=== PATIENT | male | born 1940 | race Caucasian/White ===

== ENCOUNTER 2017-11-21 07:47 | Inpatient (IN) | payer OTHER ==
--- NOTE | 2017-11-21 08:19 | PDOC ---
History of Present Illness - General History Source: Patient Exam Limitations: No Limitations - History of Present Illness Initial Comments: 11/21/17 10:01 The patient is a 77 year old male, with a significant past medical history of Skin CA, Palacios's esophagus, pulmonary fibrosis, spinal stenosis, osteoarthritis, pinched cervical nerve who presents to the emergency department with generalized weakness this morning. 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 Patient is ambulatory by walker at baseline however is unable to walk. Patients last known well was yesterday at approximately 9PM and presents to the ED for further evaluation. Upon evaluation, patient endorses headache, dizziness and double vision. Patient denies chest pain, shortness of breath. Patient denies fever, chills, abdominal pain, nausea, vomit, diarrhea or constipation. Patient denies dysuria, frequency, urgency or hematuria. Patient denies sick contacts or recent travel. Allergies: Oral and IV contrast, shellfish, omeprazole Past surgical history: Cardiac catheterization, R hip replacement. Social history: None PCP: Dr. Pisano <Alicia Mandujano - Last Filed: 11/21/17 10:13> - General History Source: Patient Exam Limitations: No Limitations <Melissa Larsen - Last Filed: 11/21/17 10:18> - General Chief Complaint: Weakness Stated Complaint: WEAKNESS Time Seen by Provider: 11/21/17 08:02 NIH Stroke Scale - Last Known Well Date/Time & Onset Date Last Known Well: 11/20/17 Time Last Known Well: 21:00 - Initial Evaluation Level of consciousness: Alert Ask patient the month and their age: Answers both correctly Ask patient to open & close eyes; make fist and let go: Obeys both correctly Best gaze (horizontal eye movement): Partial gaze palsy Visual field testing: Partial hemianopia Facial paresis (Show teeth/raise eyebrows/close eyes tight): Minor paralysis ( flattened nasolabial fold, asymmetry on smiling) Motor Function: Left Arm: Normal Motor Function: Right Arm: Normal (extends arm 90 (or 45) degrees for 10 seconds without drift Motor Function: Left Leg: No effort against gravity Motor Function: Right Leg: No effort against gravity Limb Ataxia: No ataxia Sensory(Use pinprick test arms,legs,trunk,face/side to side): Normal Best language (Describe picture, name items, read sentences): No Aphasia Dysarthria (read several words): Normal articulation Extinction and Inattention: No abnormality - Total Score NIH Stroke Scale Score: 9 <Melissa Larsen - Last Filed: 11/21/17 10:18> tPA Exclusion checklist 3-4.5h - Time Elapsed Date last known well: 11/20/17 Time last known well: 21:00 Elaspsed time: Day(s) and 13 Hour(s) and 15 Minutes - Thrombolytic Therapy Candidate Is patient eligible for thrombolytic therapy: No - Exclusion Criteria 3-4.5 hr SBP greater than 185 or DBP greater than 110mmHg despite tx: No Recent IC/spinal surgery,head trauma or stroke<3mos.: No Hx IC hemorrhage, IC neoplasm, AV malformation or aneurysm: No Active internal bleeding: No Blding diathesis(low plt ct, inc PTT,INR>1.7 or use of NOAC): No Symptoms suggest subarachnoid hemorrhage: No CT demonstrates multilobar infarct(>1/3 cerebral hemiphere): No Arterial puncture at noncompressible site in previous 7 days: No Blood glucose concentration less than 50mg/dL (2.7mmol/L): No - Relative Exclusion Criteria 3-4.5 hr Life expectancy <1 yr or severe co-morbid illness: No : No Patient/family refused: No Rapid improvement: No Stroke severity too mild: No Recent acute CT (w/in previous 3 months): No Seizure at onset with postictal residual neuro impairments: No Major surgery or serious trauma w/in previous 14 days: No Recent GI or hemorrhage (w/in previous 21 days): No - Add'l Relative Exclusion 3-4.5 hr Age > 80: No Hx of both diabetes AND prior ischemic stroke: No Taking an oral anticoagulant regardless of INR: No NIHSS >25: No - Ineligibility reason(s) Reasons No tPA given: Outside of window - delayed arrival <Melissa Larsen - Last Filed: 11/21/17 10:18> Past History <Alicia Mandujano - Last Filed: 11/21/17 10:13> - Past Medical History Cancer: Yes (SKIN) COPD: No GI Disorders: Yes (BARRETS ESOPHAGUS) Other medical history: PULMONARY FIBROSIS,SPINAL STENOSIS, OSTEOARTHRITIS, PINCHED CERVICAL NERVE - Surgical History Cardiac Surgery: Yes (CATH&STENT) - Suicide/Smoking/Psychosocial Hx Smoking History: Unknown if ever smoked <ChavaMelissa - Last Filed: 11/21/17 10:18> - Past Medical History Allergies/Adverse Reactions: Allergies Allergy/AdvReac Type Severity Reaction Status Date / Time Iodinated Contrast- Oral and Allergy Verified 11/21/17 07:52 IV Dye omeprazole Allergy Verified 11/21/17 07:52 shellfish derived Allergy Verified 11/21/17 07:52 Home Medications: Ambulatory Orders Alprazolam [Xanax] 0.5 mg PO TID 11/21/17 Aspirin [Aspirin EC] 81 mg PO HS 11/21/17 Atorvastatin Ca [Lipitor] 80 mg PO HS 11/21/17 Baclofen 10 mg PO BID 11/21/17 Cholecalciferol (Vitamin D3) [Vitamin D3] 5,000 unit PO DAILY 11/21/17 Esomeprazole Magnesium [Nexium 24Hr] 40 mg PO DAILY PRN 11/21/17 FENTANYL 25mcg PATCH [DURAGESIC 25mcg PATCH -] 75 mcg TD Q72H 11/21/17 Fluticasone Prop 0.05% Nasal [Flonase -] 1 spray NS BID PRN 11/21/17 Furosemide [Lasix -] 20 mg PO DAILY 11/21/17 Gabapentin [Neurontin] 300 mg PO TID 11/21/17 Hypromellose 0.5% Opth Soln [Artificial Tears] 1 drop OU BID PRN 11/21/17 Metoprolol Succinate [Toprol Xl -] 25 mg PO DAILY 11/21/17 Mirtazapine 7.5 mg PO HS 11/21/17 Morphine *Sr* [Ms Contin -] 15 mg PO Q8H PRN 11/21/17 Naproxen [EC-Naprosyn 375 MG] 375 mg PO BID PRN 11/21/17 Sennosides [Senna] 1 tab PO BID 11/21/17 Sodium Chloride [[place] Saline] 1 spr NS BID PRN 11/21/17 Review of Systems - Review of Systems Able to Perform ROS?: Yes Comments:: 11/21/17 10:01 GENERAL/CONSTITUTIONAL: No: fever, chills, weakness, loss of appetite. HEAD, EYES, EARS, NOSE AND THROAT: No: change in vision, ear pain, discharge, sore throat, throat swelling. CARDIOVASCULAR: No: chest pain, lightheadedness, palpitations, syncope RESPIRATORY: No: cough, shortness of breath, wheezing, hemoptysis, stridor. GASTROINTESTINAL: No: nausea, vomiting, abdominal cramping, diarrhea, rectal bleeding, constipation. GENITOURINARY: No: dysuria, hematuria, frequency, urgency, flank pain. MUSCULOSKELETAL: No: back pain, neck pain, joint pain, muscle swelling or pain SKIN: No: lesions, pallor, rash or easy bruising. NEUROLOGIC: +headache, weakness No: vertigo, paresthesias, ENDOCRINE: No: unexplained weight gain or loss HEMATOLOGIC/LYMPHATIC: No: anemia, easy bleeding, swelling nodes <Alicia Mandujano - Last Filed: 11/21/17 10:13> *Physical Exam - Vital Signs Last Vital Signs Temp Pulse Resp BP Pulse Ox 99.1 F 66 20 111/51 96 11/21/17 07:58 11/21/17 07:58 11/21/17 07:58 11/21/17 07:58 11/21/17 08:51 - Physical Exam Comments: 11/21/17 10:01 GENERAL: The patient is in no acute distress. HEAD: Normal with no signs of trauma. EYES: PERRLA, EOMI, sclera anicteric, conjunctiva clear. ENT: Ears normal, nares patent, oropharynx clear without exudates. Moist mucous membranes. NECK: Normal range of motion, supple without lymphadenopathy, JVD, or masses. LUNGS: Breath sounds equal, +Coarse breath sounds. No wheezes, and no crackles. HEART:Regular rate and rhythm, normal S1 and S2. +Systolic murmur along L sternal border. No rub or gallop. ABDOMEN: Soft, nontender, normoactive bowel sounds. No guarding, no rebound. EXTREMITIES: Normal range of motion, no edema. No clubbing or cyanosis. No erythema, or tenderness. NEUROLOGICAL: Cranial nerves II through XII grossly intact. Normal speech. No focal neurological deficits. + Flattened R nasolabial fold, asymmetry on smiling. MUSCULOSKELETAL: Back nontender to palpation, no CVA tenderness SKIN: Warm, Dry, normal turgor, no rashes or lesions noted. <Alicia Mandujano - Last Filed: 11/21/17 10:13> - Vital Signs Last Vital Signs Temp Pulse Resp BP Pulse Ox 99.1 F 66 20 111/51 100 11/21/17 07:58 11/21/17 07:58 11/21/17 07:58 11/21/17 07:58 11/21/17 07:58 <Melissa Larsen - Last Filed: 11/21/17 10:18> ED Treatment Course - LABORATORY CBC & Chemistry Diagram: 11/21/17 08:20 11/21/17 08:20 - ADDITIONAL ORDERS Additional order review: Laboratory Results 11/21/17 11/21/17 08:20 08:20 PT with INR 13.50 H INR 1.19 H Sodium 138 Potassium 4.1 Chloride 94 L Carbon Dioxide 41 H Anion Gap 3 L BUN 9 Creatinine 0.7 Creat Clearance w eGFR > 60 Random Glucose 134 H Calcium 8.4 L Total Bilirubin 0.5 AST 24 ALT 15 Alkaline Phosphatase 100 Creatine Kinase 386 H Creatine Kinase Index 1.4 CK-MB (CK-2) 5.646 H Troponin I < 0.02 Total Protein 6.9 Albumin 3.3 L Triglycerides 55 Cholesterol 110 Total LDL Cholesterol 56 HDL Cholesterol 47 11/21/17 08:20 RBC 4.05 MCV 92.8 MCHC 32.9 RDW 15.3 MPV 8.8 Neutrophils % 82.0 Lymphocytes % 10.4 Monocytes % 7.1 Eosinophils % 0.3 Basophils % 0.2 <Alicia Mandujano - Last Filed: 11/21/17 10:13> - LABORATORY CBC & Chemistry Diagram: 11/21/17 08:20 11/21/17 08:20 - RADIOLOGY Radiology Studies Ordered: Category Date Time Status HEAD CT (STROKE) [CT] Stat CT Scan 11/21/17 08:15 Ordered <Melissa Larsen - Last Filed: 11/21/17 10:18> Medical Decision Making - Medical Decision Making 11/21/17 9:20 AM-- Paged Dr. Marcos regarding patient's case. 9:37 AM-- Page returned and the patients case was discussed. 11/21/17 09:46-- Paged Dr. Vazquez answering service. Awaiting call back. 11/21/17 10:11- Talyor returned the page and the patients case was discussed. <Alicia Mandujano - Last Filed: 11/21/17 10:13> - Medical Decision Making 11/21/17 09:12 Fr. 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 This morning he awoke and reported generalized weakness. He was noted by his colleagues to be unable to bring his coffee mug to his mouth with his right hand. He had to use his left hand to assist the lifting of his coffee mug. Patient states he has a mild headache. Patient states he he notes double vision No trauma. No fevers, chills. No prior episodes like this Examination: Jair is awake and alert, answers questions appropriately. He opens his eyes independently, follows my commands. Patient had difficulty gazing to the right Right nasolabial fold flattening holds both hands up against gravity for 10 seconds Can not hold either leg up against gravity Can not do heel to cannon Pt not aphasic or dysarthric Does have difficulty seeing image when placed in his left visual field Laboratory Tests 11/21/17 11/21/17 11/21/17 08:20 08:20 08:20 WBC 9.6 Hgb 12.4 Hct 37.6 Plt Count 188 Neutrophils % 82.0 PT with INR 13.50 H INR 1.19 H Sodium 138 Potassium 4.1 Chloride 94 L Carbon Dioxide 41 H Anion Gap 3 L BUN 9 Creatinine 0.7 Random Glucose 134 H Creatine Kinase 386 H Troponin I < 0.02 11/21/17 09:19 EKG: SR rate of 68 bpm, axis nml, intervals nml, no st elevations or depressions Case reviewed with Dr marcos 11/21/17 10:[address] Henao Will admit to her service on telemetry Patient had a chest x-ray which is read as questionably positive for pneumonia. It is unclear to me if this is actually a pneumonia or result of patient's primary fibrosis. Will empirically given antibiotics. Will do CT of the patient's chest for further evaluation Clinical impression: weakness, initial presentation <Melissa Larsen - Last Filed: 11/21/17 10:18> *DC/Admit/Observation/Transfer - Attestations Scribe Attestion: 11/21/17 10:01 Documentation prepared by Alicia Mandujano, acting as certified medical technician assistant for Melissa Larsen MD <Alicia Mandujano - Last Filed: 11/21/17 10:13> - Discharge Dispostion Admit: Yes <Melissa Larsen - Last Filed: 11/21/17 10:18> Diagnosis at time of Disposition: Weakness - Discharge Dispostion Condition at time of disposition: Stable - Referrals Referrals: Carlos Eduardo Pisano [Primary Care Provider] - - Patient Instructions - Post Discharge Activity
[2017-11-21 08:36] LABS: BASO % 0.2 % (0-2.0); EOS % 0.3 % (0-4.5); HEMATOCRIT 37.6 % (35.4-49); HEMOGLOBIN 12.4 GM/dL (11.7-16.9); LYMPH % 10.4 % (8-40); MCH 30.5 pg (25.7-33.7); MCHC 32.9 g/dl (32.0-35.9); MEAN CELL VOLUME 92.8 fl (80-96); MEAN PLT VOLUME 8.8 fl (7.5-11.1); MONO % 7.1 % (3.8-10.2); PLATELET COUNT 188 K/MM3 (134-434); RBC 4.05 M/mm3 (4.00-5.60); RDW 15.3 % (11.9-15.9); WHITE BLOOD COUNT 9.6 K/mm3 (4.0-10.0)
[2017-11-21] MEDS: SODIUM CHLORIDE 1,000 ML IV SCH (08:37)
[2017-11-21 08:48] LABS: INR 1.19 (0.82-1.09); PROTHROMBIN TIME (PATIENT) 13.5 SEC (9.98-11.88)
[2017-11-21 09:11] LABS: ALBUMIN 3.3 g/dl (3.4-5.0); ANION GAP 3 (8-16); BLOOD UREA NITROGEN 9 mg/dL (7-18); CALCIUM 8.4 mg/dL (8.5-10.1); CHLORIDE 94 mmol/L (98-107); CHOLESTEROL 110 mg/dL (50-200); CO2 41 mmol/L (21-32); CREATININE 0.7 mg/dL (0.7-1.3); GLUCOSE,RANDOM 134 mg/dL (74-106); POTASSIUM 4.1 mmol/L (3.5-5.1); SGOT/AST 24 U/L (15-37); SGPT/ALT 15 U/L (12-78); SODIUM 138 mmol/L (136-145); TRIGLYCERIDES 55 mg/dL (35-160)
[2017-11-21 09:13] LABS: ALK PHOS 100 U/L (45-117); BILIRUBIN,TOTAL 0.5 mg/dL (0.2-1.0); HDL CHOLESTEROL 47 mg/dL (40-60); LDL CHOLESTEROL (ONLY SJRH) 56 mg/dL (5-100); TOT PROT 6.9 g/dl (6.4-8.2)
[2017-11-21] MEDS ORDERED: morphine CARPU-JECT 4 MG/1 ML DISP.SYRIN IVPUSH ONE (10:03)
[2017-11-21] MEDS ORDERED: MORPHINE SULFATE 10 MG/1 ML *VIAL ONE (10:10)
[2017-11-21] MEDS ORDERED: AZITHROMYCIN IVPB 500 MG in DEXTROSE 5%-WATER - 250 ML IVPB ONE (10:16)
[2017-11-21] MEDS ORDERED: CEFTRIAXONE 1 GM in DEXTROSE 5%-WATER - 50 ML IVPB ONE (10:16)
[2017-11-21] MEDS ORDERED: AZITHROMYCIN IVPB 250 ML IVPB ONE (10:23)
[2017-11-21] MEDS ORDERED: CEFTRIAXONE 1 GM/50 ML BAG ONE (10:23)
--- NOTE | 2017-11-21 10:41 | EKG ---
Test Reason : Blood Pressure : / mmHG Vent. Rate : 068 BPM Atrial Rate : 068 BPM P-R Int : 170 ms QRS Dur : 090 ms QT Int : 406 ms P-R-T Axes : -02 010 013 degrees QTc Int : 431 ms SINUS RHYTHM WITH OCCASIONAL PREMATURE VENTRICULAR COMPLEXES OTHERWISE NORMAL ECG NO PREVIOUS ECGS AVAILABLE Confirmed by SRIDEVI FAIRCHILD, MAGGY ([id number]) on 11/21/2017 10:41:10 AM Referred By: Confirmed By:MAGGY LAUREANO MD
--- NOTE | 2017-11-21 12:32 | PDOC ---
ED Treatment Course - LABORATORY CBC & Chemistry Diagram: 11/23/17 05:05 11/23/17 05:05 - ADDITIONAL ORDERS Additional order review: Laboratory Results 11/21/17 11/21/17 11/21/17 08:20 08:20 08:20 PT with INR 13.50 H INR 1.19 H Sodium 138 Potassium 4.1 Chloride 94 L Carbon Dioxide 41 H Anion Gap 3 L BUN 9 Creatinine 0.7 Creat Clearance w eGFR > 60 Random Glucose 134 H Calcium 8.4 L Total Bilirubin 0.5 AST 24 ALT 15 Alkaline Phosphatase 100 Creatine Kinase 386 H Creatine Kinase Index 1.4 CK-MB (CK-2) 5.646 H Troponin I < 0.02 Total Protein 6.9 Albumin 3.3 L Triglycerides 55 Cholesterol 110 Total LDL Cholesterol 56 HDL Cholesterol 47 Blood Type O POSITIVE Antibody Screen Negative 11/21/17 08:20 RBC 4.05 MCV 92.8 MCHC 32.9 RDW 15.3 MPV 8.8 Neutrophils % 82.0 Lymphocytes % 10.4 Monocytes % 7.1 Eosinophils % 0.3 Basophils % 0.2 - RADIOLOGY Radiology Studies Ordered: Category Date Time Status HEAD CT (STROKE) [CT] Stat CT Scan 11/21/17 08:15 Completed CHEST X-RAY PORTABLE* [RAD] Stat Radiology 11/21/17 08:51 Completed - Medications Given in the ED: ED Medications Discontinued Medications Generic Name Dose Route Start Last Admin Trade Name Freq PRN Reason Stop Dose Admin Azithromycin 500 mg/ Dextrose 250 mls @ 250 mls/hr 11/21/17 10:16 11/21/17 10 :41 IVPB 11/21/17 11:15 250 mls/hr ONCE ONE Administration Ceftriaxone Sodium 1 gm/ 50 mls @ 100 mls/hr 11/21/17 10:16 11/21/17 10:32 Dextrose IVPB 11/21/17 10:45 100 mls/hr ONCE ONE Administration Morphine Sulfate 2 mg 11/21/17 10:03 11/21/17 10:13 Morphine Injection - IVPUSH 11/21/17 10:04 2 mg ONCE ONE Administration Medical Decision Making - Medical Decision Making Case reviewed with Skein Mercerizing Machine Operator re: placing pt on observation Call placed to Dr Vazquez re: placing pt on obs instead of admission Awaiting response *DC/Admit/Observation/Transfer Diagnosis at time of Disposition: Weakness - Discharge Dispostion Condition at time of disposition: Stable - Referrals - Patient Instructions - Post Discharge Activity
[2017-11-21 13:34] VITALS: BMI 35.9
[2017-11-21 15:50] LABS: URINE APPEARANCE CLEAR; URINE BILIRUBIN NEGATIVE (NEGATIVE); URINE BLOOD NEGATIVE (NEGATIVE); URINE COLOR YELLOW; URINE GLUCOSE (UA) NEGATIVE (NEGATIVE); URINE KETONE NEGATIVE (NEGATIVE); URINE LEUK ESTERASE NEGATIVE (NEGATIVE); URINE NITRITE NEGATIVE (NEGATIVE); URINE PROTEIN NEGATIVE (NEGATIVE); URINE UROBILINOGEN NEGATIVE mg/dL (0.2-1.0)
--- NOTE | 2017-11-21 19:14 | HP ---
Admitting History and Physical - Admission History of Present Illness: 11/21/17 10:01 The patient is a 77 year old male, with a significant past medical history of Skin CA, Alonzo's esophagus, pulmonary fibrosis, spinal stenosis, osteoarthritis, pinched cervical nerve who presents to the emergency department with generalized weakness this morning. 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 Patient is ambulatory by walker at baseline however is unable to walk. Patients last known well was yesterday at approximately 9PM and presents to the ED for further evaluation. Upon evaluation, patient endorses headache, dizziness and double vision. Patient denies chest pain, shortness of breath. Patient denies fever, chills, abdominal pain, nausea, vomit, diarrhea or constipation. Patient denies dysuria, frequency, urgency or hematuria. Patient denies sick contacts or recent travel. 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: Peripheral Neuropathy, Parkinson's, TIA Cardiovascular: Yes: HTN Pulmonary: Yes: Pulmonary Fibrosis (had been on Hospice) Gastrointestinal: Yes: Constipation, GERD Psych: Yes: Addictions, Anxiety Musculoskeletal: Yes: Chronic low back pain, Osteoarthritis, Other (spinal and cervical stenosis) Dermatology: Yes: Basal Cell - Past Surgical History Past Surgical History: Yes: Joint Replacement (right hip) - Advance Directives Advance Directives: Yes: Health Care Proxy - Smoking History Smoking history: Unknown if ever smoked - Social History Usual Living Arrangement: Yes: Assisted Living ADL: Support Services History of Recent Travel: No Home Medications - Allergies Allergies/Adverse Reactions: Allergies Allergy/AdvReac Type Severity Reaction Status Date / Time Iodinated Contrast- Oral and Allergy Verified 11/21/17 07:52 IV Dye omeprazole Allergy Verified 11/21/17 07:52 shellfish derived Allergy Verified 11/21/17 07:52 - Home Medications Home Medications: Ambulatory Orders Alprazolam [Xanax] 0.5 mg PO TID 11/21/17 Aspirin [Aspirin EC] 81 mg PO HS 11/21/17 Atorvastatin Ca [Lipitor] 80 mg PO HS 11/21/17 Baclofen 10 mg PO BID 11/21/17 Cholecalciferol (Vitamin D3) [Vitamin D3] 5,000 unit PO DAILY 11/21/17 Esomeprazole Magnesium [Nexium 24Hr] 40 mg PO DAILY PRN 11/21/17 FENTANYL 25mcg PATCH [DURAGESIC 25mcg PATCH -] 75 mcg TD Q72H 11/21/17 Fluticasone Prop 0.05% Nasal [Flonase -] 1 spray NS BID PRN 11/21/17 Furosemide [Lasix -] 20 mg PO DAILY 11/21/17 Gabapentin [Neurontin] 300 mg PO HS 11/21/17 Hypromellose 0.5% Opth Soln [Artificial Tears] 1 drop OU BID PRN 11/21/17 Metoprolol Succinate [Toprol Xl -] 25 mg PO DAILY 11/21/17 Mirtazapine 7.5 mg PO HS 11/21/17 Morphine *Sr* [Ms Contin -] 15 mg PO Q8H PRN 11/21/17 Naproxen [EC-Naprosyn 375 MG] 375 mg PO BID PRN 11/21/17 Sennosides [Senna] 1 tab PO BID 11/21/17 Sodium Chloride [[place] Saline] 1 spr NS BID PRN 11/21/17 Review of Systems - Review of Systems Constitutional: reports: Lethargy, Loss of Appetite, Malaise, Weakness. denies : Chills, Diaphoresis, Fever, Night Sweats Eyes: reports: No Symptoms HENT: reports: No Symptoms Neck: reports: Decreased ROM, Pain on Movement Cardiovascular: reports: Shortness of Breath. denies: Chest Pain, Palpitations Respiratory: reports: Exercise Intolerance, Orthopnea, SOB, SOB on Exertion Gastrointestinal: reports: Constipation, Indigestion. denies: Abdominal Pain, Diarrhea, Dysphagia, Melena, Nausea Genitourinary: reports: No Symptoms Breasts: reports: No Symptoms Reported Musculoskeletal: reports: Back Pain, Decreased ROM, Extremity Pain, Muscle Pain , Muscle Weakness Integumentary: reports: Wound (sacral decubiti) Psychiatric: reports: Anxiety, Depression Physical Examination Vital Signs: Vital Signs Temperature 98.6 F 11/21/17 17:06 Pulse Rate 68 11/21/17 17:06 Respiratory Rate 18 11/21/17 17:06 Blood Pressure 97/60 11/21/17 17:06 O2 Sat by Pulse Oximetry (%) 99 11/21/17 17:06 Constitutional: Yes: Moderate Distress, Obese Eyes: Yes: Conjunctiva Clear, EOM Intact HENT: Yes: Atraumatic, Normocephalic Neck: Yes: Supple, Trachea Midline Cardiovascular: Yes: Pulse Irregular Respiratory: Yes: Diminished, Rhonchi, SOB on Exertion. No: Rales, Stridor, Wheezes Gastrointestinal: Yes: Normal Bowel Sounds, Soft, Abdomen, Obese Renal/: Yes: WNL Breast(s): Yes: WNL Musculoskeletal: Yes: Back Pain, Joint Stiffness, Muscle Pain, Muscle Weakness Edema: Yes Peripheral Pulses WNL: No Neurological: Yes: Alert, Oriented, Numbness, Pre-Existing Deficit, Tremors ( right UE), Unsteady Gait Psychiatric: Yes: Alert, Oriented, Other (depressed) Labs: CBC, BMP 11/21/17 08:20 11/21/17 08:20 Problem List - Problems (1) TIA (transient ischemic attack) Assessment/Plan: acute UE weakness / CT without acute finding Neurology eval May decline MRI in view of clostrophobia will discuss further with Neurology Pt evaluation if back to baseline will arrange for STR @ [facility] Code(s): G45.9 - TRANSIENT CEREBRAL ISCHEMIC ATTACK, UNSPECIFIED (2) Fibrosis, pulmonary, interstitial, diffuse Assessment/Plan: resume medications Pulmonary evaluation Had been on hospice for ILD about 1 yr ago limited activity / tolerance/ Code(s): J84.10 - PULMONARY FIBROSIS, UNSPECIFIED (3) Alonzo esophagus Code(s): K22.70 - ALONZO'S ESOPHAGUS WITHOUT DYSPLASIA (4) Chronic hypoxemic respiratory failure Code(s): J96.11 - CHRONIC RESPIRATORY FAILURE WITH HYPOXIA (5) Pulmonary fibrosis Code(s): J84.10 - PULMONARY FIBROSIS, UNSPECIFIED (6) Weakness Code(s): R53.1 - WEAKNESS
[2017-11-21] MEDS ORDERED: DOCUSATE SODIUM 100 MG CAPSULE (FP) PO PRN (19:51)
--- NOTE | 2017-11-21 21:37 | CONSULT ---
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 He describes a few years of progressive gait dysfunction attributed to cervical and LS spinal stenosis. He has required a walker x 1 year. Also 1 year of right hand tremors. Admitted today after he had trouble feeding himself breakfast, although he notes "this has happened before." He indicates that he need to hold his OJ and coffee with BOTH hands in order to get it to his mouth. CT of head (Reviewed): Shows moderate, diffuse atrophy and microvascular changes. TEDDY: No bruits. Sebborheic skin changes. Cor reg. In NAD. + George NEURO: Sl festinating speech Mild OMS. Ox SJ. November 25, 2017. Difficulty recalling Trump and reversing WORLD. Recalls 2 of 3 @ 3 mins + Glabella, snout, grasps. Masked facies. Gag OK Motor: No drift. Normal strength. ++ Rest tremor R>>L. + Cogwheel rigidity. Decreased KJ's. Absent AJ's. Toes downgoing No FTN Dystaxia Decreased vib in feet. Gait deferred. IMP: Mild B/L cerebral dysfunction (OMS, Chronic features). Parkinsonism, probably Parkinson's Disease. Peripheral neuropathy and/or LS Spinal stenosis. Cannot r/o TIA SUGGEST: Check, B12, TSH, RPR MRI of brain (C-) and MR Angio of brain and Carotids. Start Sinemet 25/100 TID at 7, 12, and 5. Mobilize OOB to chair; D/C George KAREN; and PT for gait with walker. Thank you very much, Matheus Bustillos MD
[2017-11-21] MEDS: FLUTICASONE PROP 0.05% 16 GM NASAL SPRAY NS SCH (21:43)
[2017-11-21] MEDS: ATORVASTATIN CA 80 MG TABLET (FP) PO SCH (21:43)
[2017-11-21] MEDS: GABAPENTIN 300 MG CAPSULE (FP) PO SCH (21:43)
[2017-11-21] MEDS: ALPRAZolam 0.25 MG TABLET PO SCH (21:44)
[2017-11-21] MEDS: MIRTAZAPINE 15 MG TABLET (FP) PO SCH (21:44)
[2017-11-21] MEDS ORDERED: PT OWN MED DRAWER 7, Y5N ONE (21:59)
[2017-11-21] MEDS ORDERED: BACLOFEN 10 MG TABLET (FP) PO SCH (22:00)
[2017-11-22 07:08] LABS: BASO % 0.4 % (0-2.0); EOS % 4.7 % (0-4.5); HEMATOCRIT 34.2 % (35.4-49); HEMOGLOBIN 11.5 GM/dL (11.7-16.9); LYMPH % 23.9 % (8-40); MCH 30.9 pg (25.7-33.7); MCHC 33.6 g/dl (32.0-35.9); MEAN PLT VOLUME 9.2 fl (7.5-11.1); MONO % 9.6 % (3.8-10.2); NEUT % 61.4 % (42.8-82.8); PLATELET COUNT 158 K/MM3 (134-434); RBC 3.71 M/mm3 (4.00-5.60); RDW 15.4 % (11.9-15.9)
[2017-11-22 07:23] LABS: ALBUMIN 2.9 g/dl (3.4-5.0); ANION GAP 3 (8-16); BILIRUBIN,TOTAL 0.5 mg/dL (0.2-1.0); BLOOD UREA NITROGEN 8 mg/dL (7-18); CALCIUM 8.6 mg/dL (8.5-10.1); CHLORIDE 98 mmol/L (98-107); CHOLESTEROL 88 mg/dL (50-200); CO2 40 mmol/L (21-32); CREATININE 0.5 mg/dL (0.7-1.3); GLUCOSE,RANDOM 83 mg/dL (74-106); LDL CHOLESTEROL (ONLY SJRH) 44 mg/dL (5-100); POTASSIUM 3.6 mmol/L (3.5-5.1); SGOT/AST 23 U/L (15-37); SGPT/ALT 17 U/L (12-78); SODIUM 141 mmol/L (136-145); TOT PROT 6.1 g/dl (6.4-8.2); TRIGLYCERIDES 58 mg/dL (35-160)
[2017-11-22 07:29] LABS: ALK PHOS 83 U/L (45-117); HDL CHOLESTEROL 42 mg/dL (40-60)
[2017-11-22] MEDS: PANTOPRAZOLE 40 MG TABLET (FP) PO SCH (10:12)
[2017-11-22] MEDS: ASPIRIN COATED 81 MG TABLET.EC PO SCH (10:12)
[2017-11-22] MEDS: FLUTICASONE PROP 0.05% 16 GM NASAL SPRAY NS SCH ×2 (10:12→22:06)
[2017-11-22] MEDS: metoPROLOL SUCCINATE 25 MG TAB.SR.24H (FP) PO SCH (10:12)
[2017-11-22] MEDS: FUROSEMIDE 20 MG TABLET (FP) PO SCH (10:13)
[2017-11-22] MEDS: ALPRAZolam 0.25 MG TABLET PO SCH ×2 (10:15→22:06)
--- NOTE | 2017-11-22 12:18 | PN ---
Progress Note (short form) - Note Progress Note: PULMONARY CONSULTATION DICTATED 11/22/17 IMP CHRONIC HYPOXEMIC RESPIRATORY FAILURE ADVANCED ILD/PULMONARY FIBROSIS WEAKNESS ? TIA BARRETTS ESOPHAGUS H/O SKIN CA OSTEOARTHRITIS PLAN O2 INHALED BRONCHODILATORS PT DVT PROHYLAXIS NEURO W/U PER NEUROLOGY DR SALAS Problem List - Problems (1) Pulmonary fibrosis Code(s): J84.10 - PULMONARY FIBROSIS, UNSPECIFIED (2) Weakness Code(s): R53.1 - WEAKNESS (3) Chronic hypoxemic respiratory failure Code(s): J96.11 - CHRONIC RESPIRATORY FAILURE WITH HYPOXIA (4) Alonzo esophagus Code(s): K22.70 - ALONZO'S ESOPHAGUS WITHOUT DYSPLASIA
--- NOTE | 2017-11-22 13:15 | CONSULT ---
Admitting History and Physical - Primary Care Physician PCP: Linda Vazquez I - Admission History of Present Illness: Admission note: The patient is a 77 year old male, with a significant past medical history of Skin CA, Palacios's esophagus, pulmonary fibrosis, spinal stenosis, osteoarthritis, pinched cervical nerve who presents to the emergency department with generalized weakness this morning. As per clinical lab clerk, patient had difficulty in raising coffee mug to mouth with R hand and appeared to be leaning to the R side. Patient is ambulatory by walker at baseline however is unable to walk Coughing in ER while drinking but pt and clinical lab clerk reports he was lethargic and "not himself." Neuro imp: Mild B/L cerebral dysfunction (OMS, Chronic features). Parkinsonism, probably Parkinson's Disease. Peripheral neuropathy and/or LS Spinal stenosis. Cannot r/o TIA History Source: Patient, Family Member Limitations to Obtaining History: No Limitations - Advance Directives Advance Directives: Yes: Health Care Proxy - Smoking History Smoking history: Unknown if ever smoked History - Admission Reason For Visit: WEAKNESS - Diagnostics X-ray: Report Reviewed CT Scan: Report Reviewed - General Mental Status: Alert and Oriented, Awake and Alert, Able to Follow Commands Attention: Intact Ability to Follow Directions: Excellent Head/Neck Control: WFL - Hearing Hearing: Normal Speech Evaluation - Communication Primary Language: ARMENIAN Communication: Yes: Within Normal Limits Oral Expression Ability: Yes: No Impairment - Speech Production Able to Make Needs Known: Yes: WNL Intelligibility: Yes: WNL - Speech Characteristics Voice Loudness: Normal Voice Pitch: Yes: Normal Voice Phonatory-based Quality: Yes: Normal Speech Pattern: Normal Speech Clarity: < 100% Nasal Resonance: Normal Articulation: Yes: Precise Rate of Speech: Intact - Language/Auditory Comprehension Follows: Yes: 2 Stage Simple Commands - Language/Verbal Expression Able to Respond to Simple Queries: Yes: WNL Able to Communicate Wants and Needs: Yes: WNL Functional Communication Status: Yes: WNL - Swallow Evaluation/Bedside Assessment Current Nutritional Intake: Regular Oral Secretions: Yes: WFL Dentition: Yes: Adequate Facial Symmetry at Rest: Symmetrical Facial Symmetry on Retraction: Symmetrical Sensation: Normal Against Resistance Opening: Normal Against Resistance Closing: Normal Pucker Lips: Normal Smile: Normal Lingual Movement: Normal, Symmetric Lingual Speed of Movement: Normal Lingual Movement Strgth Against Opposition: Normal Lingual Movement Characteristics: Normal Velopharyngeal Movement: Normal Laryngeal Elevation: WFL Laryngeal Movement: Able to Palpate Rate of Intake: WFL Bolus Size: WFL Labial Seal: WFL Chewing: WFL Oral Prep Time: WFL A-P Transit: WFL Pocketing: None Timing of Swallow: WFL Coughing/Throat Clear: No Change in Voice: No Recommendations - Speech Evaluation, Impression/Plan Impression: Speech,language, swallowing, cognition seem intact. Good historian. - Dysphagia Impressions/Plan Swallowing Skills: WFL *Silent aspiration: cannot be R/O at bedside Recommendations: Modified Barium Swallow (if cough,congestion s/s of dysphagia) - Recommendations Diet Consistency: Regular Medication Administration: Whole with water Liquids: Thin Liquids
--- NOTE | 2017-11-22 13:27 | CONS ---
PULMONARY CONSULTATION DATE OF CONSULTATION: 11/22/2017 REFERRING PHYSICIAN: Linda Vazquez MD HISTORY OF PRESENT ILLNESS: The patient is a 77-year-old white male with past medical history of skin CA, history of Palacios esophagus, history of interstitial lung disease, pulmonary fibrosis diagnosed 1 year ago at [facility]. Apparently, he is on medications which include steroids without any improvement, maintained on home O2. Spinal stenosis, osteoarthritis, cervical pinched nerve, admitted to [facility] with complaint of generalized weakness. According to the patient's livestock caretaker, the patient had difficulty raising his mug to his mouth with his right hand and appeared to be leaning to the right side. He presented to the emergency department with the above. In the ER, he had a CT scan of the head which revealed no evidence of acute process. He was evaluated by Dr. Bustillos who felt that the patient possibly had a TIA, possibly had Parkinson's. He was placed on Sinemet. Patient, as stated before, has been previously seen at [facility] for hospice. He is maintained on O2 and has dyspnea on exertion. He has an occasional cough, but it is nonproductive. Denies any fevers or chills, weight loss, or night sweats. Denies hemoptysis. He has a history of tobacco use, quit many years ago. 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 There is no history of DVT or PE in the past. PAST MEDICAL HISTORY: Again includes a history of skin CA, Palacios esophagus, GERD, history of pulmonary fibrosis, interstitial lung disease on home O2, spinal stenosis, osteoarthritis, cervical pinched nerve, history of a cardiac catheterization as well as a right hip replacement. REVIEW OF SYSTEMS: No orthopnea. Positive dyspnea on exertion. Positive occasional cough. Positive weakness. No chest pain. No palpitations. No abdominal pain. No lower extremity edema. CURRENT MEDICATIONS: Include Neurontin, Remeron, Xanax, Toprol, Colace, Flonase, Sinemet, normal saline, Lipitor, Lasix, Ecotrin, MS Contin, Protonix, and Santyl. PHYSICAL EXAMINATION: General: The patient is a well-developed, well-nourished male, awake, alert, currently in no acute distress. Vital Signs: He is currently afebrile. Blood pressure is 138/70, respiratory rate is 18, O2 saturation is 99% on 2 L. HEENT: Exam is normocephalic, atraumatic. Neck: Supple. Heart: Regular. S1, S2. Chest: Bilateral crackles throughout. Abdomen: Soft. Bowel sounds are positive. Extremities: No cyanosis or edema. LABORATORY DATA: WBC is 8, hemoglobin 11.5, hematocrit 34.2, with a platelet count of 158,000. INR is 1.19. BUN 8, creatinine 0.5. Chest CT: Extensive interstitial changes bilaterally. There is shotty adenopathy and extension traction bronchiectasis, bilateral honeycombing at the bases. IMPRESSION: 1. Advanced interstitial lung disease, pulmonary fibrosis on O2. 2. Rule out transient ischemic attack. 3. Possible Parkinson's. 4. Gastroesophageal reflux disease. 5. Palacios esophagus. PLAN: Continue O2, inhaled bronchodilators, prednisone, neurological workup as per Neurology. PT as tolerated. ESME SALAS M.D. [id number]
[2017-11-22] MEDS: ALBUTEROL SO4 2.5/IPRATROPIUM 0.5 INH SOL 3 ML VIAL.NEB. NEB SCH ×2 (13:45→20:52)
[2017-11-22] MEDS: COLLAGENASE CLOSTRIDIUM HIST. 30 GRAMS TUBE TP SCH ×2 (13:47→22:07)
[2017-11-22] MEDS: SODIUM CHLORIDE 1,000 ML IV SCH (17:40)
[2017-11-22] MEDS ORDERED: PT OWN MED DRAWER 7, Y5N ONE (17:44)
--- NOTE | 2017-11-22 21:50 | PN ---
Progress Note (short form) - Note Progress Note: patient seen and examined sitting in chair O2 in place + dyspneic anxious about MRI speech clear Vital Signs Period Temp Pulse Resp BP Sys/Gipson Pulse Ox Last 24 Hr 97.4 F-98.4 F 57-86 18-20 95-140/43-81 99 neck -jcd heart S1/S2 lungs decreased BS / rhochi diffusely abd obese / nontender ( reports open sore in sacral area / unable to examine at this time) CBC, BMP 11/22/17 06:30 11/22/17 06:30 Microbiology 11/21/17 11:10 Blood - Peripheral Venous Blood Culture - Preliminary NO GROWTH OBTAINED AFTER 24 HOURS, INCUBATION TO CONTINUE FOR 4 DAYS. 11/21/17 10:20 Blood - Peripheral Venous Blood Culture - Preliminary NO GROWTH OBTAINED AFTER 24 HOURS, INCUBATION TO CONTINUE FOR 4 DAYS. Active Medications Albuterol/Ipratropium (Duoneb -) 1 amp NEB RTID [facility] Last Admin: 11/22/17 13:45 Dose: 1 amp Alprazolam (Xanax -) 0.5 mg PO BID [facility] Last Admin: 11/22/17 10:15 Dose: 0.5 mg Aspirin (Ecotrin -) 81 mg PO DAILY [facility] Last Admin: 11/22/17 10:12 Dose: 81 mg Atorvastatin Calcium (Lipitor -) 80 mg PO HS [facility] Last Admin: 11/21/17 21:43 Dose: 80 mg Carbidopa/Levodopa (Sinemet *Cr* 25/100 -) 0.5 combo PO TIDCM [facility] Stop: 11/22/17 23:00 Last Admin: 11/22/17 17:40 Dose: 0.5 combo Carbidopa/Levodopa (Sinemet *Cr* 25/100 -) 1 combo PO TID@0800,1200,1730 [facility] Collagenase (Santyl -) 1 applic TP BID [facility] Last Admin: 11/22/17 13:47 Dose: 1 applic Docusate Sodium (Colace -) 200 mg PO Q12H PRN PRN Reason: CONSTIPATION Last Admin: 11/22/17 10:12 Dose: 200 mg Fluticasone Propionate (Flonase -) 1 spray NS BID [facility] Last Admin: 11/22/17 10:12 Dose: 1 spray Furosemide (Lasix -) 20 mg PO DAILY [facility] Last Admin: 11/22/17 10:13 Dose: 20 mg Gabapentin (Neurontin -) 300 mg PO HS [facility] Last Admin: 11/21/17 21:43 Dose: 300 mg Sodium Chloride (Normal Saline -) 1,000 mls @ 42 mls/hr IV ASDIR [facility] Last Admin: 11/22/17 17:40 Dose: 42 mls/hr Metoprolol Succinate (Toprol Xl -) 25 mg PO DAILY [facility] Last Admin: 11/22/17 10:12 Dose: 25 mg Mirtazapine (Remeron -) 7.5 mg PO HS [facility] Last Admin: 11/21/17 21:44 Dose: 7.5 mg Morphine Sulfate (Ms Contin -) 15 mg PO Q8H PRN PRN Reason: PAIN LEVEL 4 - 6 Pantoprazole Sodium (Protonix -) 40 mg PO DAILY [facility] Last Admin: 11/22/17 10:12 Dose: 40 mg Problem List - Problems (1) TIA (transient ischemic attack) Assessment/Plan: acute UE weakness / CT without acute finding Neurology eval declined MRI will discuss further with Neurology Pt evaluation will arrange for STR @ [facility] Code(s): G45.9 - TRANSIENT CEREBRAL ISCHEMIC ATTACK, UNSPECIFIED (2) Fibrosis, pulmonary, interstitial, diffuse Assessment/Plan: resume medications / nebulizers Pulmonary evaluation appreciated Had been on hospice for ILD about 1 yr ago limited activity / tolerance/ Code(s): J84.10 - PULMONARY FIBROSIS, UNSPECIFIED (3) Palacios esophagus Code(s): K22.70 - PALACIOS'S ESOPHAGUS WITHOUT DYSPLASIA (4) Chronic hypoxemic respiratory failure Code(s): J96.11 - CHRONIC RESPIRATORY FAILURE WITH HYPOXIA (5) Pulmonary fibrosis Code(s): J84.10 - PULMONARY FIBROSIS, UNSPECIFIED (6) Weakness Code(s): R53.1 - WEAKNESS (7) Chronic pain Assessment/Plan: meds resumed adjust as needed Code(s): G89.29 - OTHER CHRONIC PAIN (8) Spinal stenosis of lumbar region with radiculopathy Code(s): M48.061 - SPINAL STENOSIS, LUMBAR REGION WITHOUT NEUROGENIC MARTIN; M54.16 - RADICULOPATHY, LUMBAR REGION (9) Spinal stenosis in cervical region Code(s): M48.02 - SPINAL STENOSIS, CERVICAL REGION (10) GERD (gastroesophageal reflux disease) Code(s): K21.9 - GASTRO-ESOPHAGEAL REFLUX DISEASE WITHOUT ESOPHAGITIS (11) Constipation due to opioid therapy Code(s): K59.03 - DRUG INDUCED CONSTIPATION; T40.2X5A - ADVERSE EFFECT OF OTHER OPIOIDS, INITIAL ENCOUNTER
[2017-11-22] MEDS: GABAPENTIN 300 MG CAPSULE (FP) PO SCH (22:06)
[2017-11-22] MEDS: ATORVASTATIN CA 80 MG TABLET (FP) PO SCH (22:06)
[2017-11-22] MEDS: MIRTAZAPINE 15 MG TABLET (FP) PO SCH (22:06)
[2017-11-23] MEDS ORDERED: CARBIDOPA/LEVODOPA 25/100 TABLET (FP) PO SCH (06:00)
[2017-11-23 07:05] LABS: BASO % 0.4 % (0-2.0); EOS % 3.7 % (0-4.5); HEMATOCRIT 32.8 % (35.4-49); LYMPH % 20.7 % (8-40); MCH 30.7 pg (25.7-33.7); MCHC 33.7 g/dl (32.0-35.9); MEAN CELL VOLUME 91.1 fl (80-96); MEAN PLT VOLUME 9.1 fl (7.5-11.1); MONO % 10.4 % (3.8-10.2); NEUT % 64.8 % (42.8-82.8); PLATELET COUNT 174 K/MM3 (134-434); RDW 14.8 % (11.9-15.9)
[2017-11-23 07:21] LABS: ANION GAP 9 (8-16); BLOOD UREA NITROGEN 6 mg/dL (7-18); CALCIUM 8.7 mg/dL (8.5-10.1); CHLORIDE 97 mmol/L (98-107); CO2 35 mmol/L (21-32); CREATININE 0.6 mg/dL (0.7-1.3); GLUCOSE,RANDOM 92 mg/dL (74-106); MAGNESIUM 2.1 mg/dL (1.8-2.4); POTASSIUM 3.5 mmol/L (3.5-5.1); SODIUM 141 mmol/L (136-145)
[2017-11-23] MEDS: ALBUTEROL SO4 2.5/IPRATROPIUM 0.5 INH SOL 3 ML VIAL.NEB. NEB SCH ×3 (08:17→21:35)
[2017-11-23] MEDS: ASPIRIN COATED 81 MG TABLET.EC PO SCH (10:31)
[2017-11-23] MEDS: ALPRAZolam 0.25 MG TABLET PO SCH ×4 (10:31→21:40)
[2017-11-23] MEDS: PANTOPRAZOLE 40 MG TABLET (FP) PO SCH (10:32)
[2017-11-23] MEDS: FUROSEMIDE 20 MG TABLET (FP) PO SCH (10:32)
[2017-11-23] MEDS: morphine SO4 SUSTAINED ACTING 15 MG TABLET.SA PO PRN ×2 (10:33→22:56)
[2017-11-23] MEDS: SODIUM CHLORIDE 1,000 ML IV SCH (10:33)
[2017-11-23] MEDS: FLUTICASONE PROP 0.05% 16 GM NASAL SPRAY NS SCH ×2 (10:33→21:39)
[2017-11-23] MEDS: COLLAGENASE CLOSTRIDIUM HIST. 30 GRAMS TUBE TP SCH ×2 (10:33→21:39)
[2017-11-23] MEDS: metoPROLOL SUCCINATE 25 MG TAB.SR.24H (FP) PO SCH (10:35)
--- NOTE | 2017-11-23 10:42 | EKG ---
Test Reason : Blood Pressure : / mmHG Vent. Rate : 070 BPM Atrial Rate : 070 BPM P-R Int : 174 ms QRS Dur : 096 ms QT Int : 394 ms P-R-T Axes : 032 010 021 degrees QTc Int : 425 ms SINUS RHYTHM WITH OCCASIONAL PREMATURE VENTRICULAR COMPLEXES AND PREMATURE ATRIAL COMPLEXES NONSPECIFIC ST ABNORMALITY ABNORMAL ECG WHEN COMPARED WITH ECG OF 22-NOV-2017 09:20, PREMATURE VENTRICULAR COMPLEXES ARE NOW PRESENT PREMATURE ATRIAL COMPLEXES ARE NOW PRESENT Confirmed by LONNIE FAIRCHILD, FERNANDO ([id number]) on 11/23/2017 10:42:25 AM Referred By: Cele DERAS Confirmed By:FERNANDO FLEMING MD
--- NOTE | 2017-11-23 11:29 | PN ---
Progress Note (short form) - Note Progress Note: PULMONARY Feels more short of breath today. +nonproductive cough. No fevers or chills. Last Vital Signs Temp Pulse Resp BP Pulse Ox 97.9 F 65 20 140/68 94 L 11/23/17 05:48 11/23/17 05:48 11/23/17 05:48 11/23/17 05:48 11/22/17 21:00 Gen: NAD in chair Heart: RRR Lung: bibasilar rales Abd: soft, nontender Ext: no edema CBC, BMP 11/23/17 05:05 11/23/17 05:05 Active Medications Albuterol/Ipratropium (Duoneb -) 1 amp NEB RTID [facility] Last Admin: 11/23/17 08:17 Dose: 1 amp Alprazolam (Xanax -) 0.5 mg PO BID [facility] Last Admin: 11/23/17 10:31 Dose: 0.5 mg Aspirin (Ecotrin -) 81 mg PO DAILY [facility] Last Admin: 11/23/17 10:31 Dose: 81 mg Atorvastatin Calcium (Lipitor -) 80 mg PO [facility] Last Admin: 11/22/17 22:06 Dose: 80 mg Carbidopa/Levodopa (Sinemet *Cr* 25/100 -) 1 combo PO TID@0800,1200,1730 [facility] Last Admin: 11/23/17 08:32 Dose: 1 combo Collagenase (Santyl -) 1 applic TP BID [facility] Last Admin: 11/23/17 10:33 Dose: 1 applic Docusate Sodium (Colace -) 200 mg PO Q12H PRN PRN Reason: CONSTIPATION Last Admin: 11/22/17 10:12 Dose: 200 mg Fluticasone Propionate (Flonase -) 1 spray NS BID [facility] Last Admin: 11/23/17 10:33 Dose: 1 spray Furosemide (Lasix -) 20 mg PO DAILY [facility] Last Admin: 11/23/17 10:32 Dose: Not Given Gabapentin (Neurontin -) 300 mg PO [facility] Last Admin: 11/22/17 22:06 Dose: 300 mg Sodium Chloride (Normal Saline -) 1,000 mls @ 42 mls/hr IV ASDIR [facility] Last Admin: 11/23/17 10:33 Dose: 42 mls/hr Metoprolol Succinate (Toprol Xl -) 25 mg PO DAILY [facility] Last Admin: 11/23/17 10:35 Dose: 25 mg Mirtazapine (Remeron -) 7.5 mg PO HS [facility] Last Admin: 11/22/17 22:06 Dose: 7.5 mg Morphine Sulfate (Ms Contin -) 15 mg PO Q8H PRN PRN Reason: PAIN LEVEL 4 - 6 Last Admin: 11/23/17 10:33 Dose: 15 mg Pantoprazole Sodium (Protonix -) 40 mg PO DAILY [facility] Last Admin: 11/23/17 10:32 Dose: 40 mg A/P Chronic Hypoxic Respiratory Failure r/o TIA Idiopathic Pulmonary Fibrosis Barretts Esophagus HTN Hypercholesterolemia - will start trial of medrol - inhaled bronchodilators - O2 to keep SpO2 >90% - neuro work up in progress - DVT prophylaxis
[2017-11-23] MEDS ORDERED: FENTANYL PATCH WASTE TD PRN (16:04)
[2017-11-23] MEDS ORDERED: LORazepam 2 MG/ML SDV VIAL ONE (16:05)
[2017-11-23] MEDS ORDERED: fentaNYL 75mcg/hr PATCH.TD72 TD SCH (16:15)
[2017-11-23] MEDS ORDERED: LORazepam 2 MG/ML SDV VIAL IVPUSH ONE (16:15)
--- NOTE | 2017-11-23 20:40 | PN ---
Progress Note (short form) - Note Progress Note: patient seen and examined sitting in chair O2 in place + dyspneic anxious friends at bedside discussed all meds and plan of care / and STR Vital Signs Period Temp Pulse Resp BP Sys/Gipson Pulse Ox Last 24 Hr 97.4 F-98.4 F 57-86 18-20 95-140/43-81 99 neck -jcd heart S1/S2 lungs decreased BS / abd obese / nontender ( reports open sore in sacral area / unable to examine at this time) ext no edema CBC, BMP 11/23/17 05:05 11/23/17 05:05 Microbiology 11/21/17 11:10 Blood - Peripheral Venous Blood Culture - Preliminary NO GROWTH OBTAINED AFTER 48 HOURS, INCUBATION TO CONTINUE FOR 3 DAYS. 11/21/17 10:20 Blood - Peripheral Venous Blood Culture - Preliminary NO GROWTH OBTAINED AFTER 48 HOURS, INCUBATION TO CONTINUE FOR 3 DAYS. Active Medications Albuterol/Ipratropium (Duoneb -) 1 amp NEB RTID [facility] Last Admin: 11/23/17 14:00 Dose: Not Given Alprazolam (Xanax -) 0.5 mg PO QID [facility] Last Admin: 11/23/17 17:23 Dose: 0.5 mg Aspirin (Ecotrin -) 81 mg PO DAILY [facility] Last Admin: 11/23/17 10:31 Dose: 81 mg Atorvastatin Calcium (Lipitor -) 80 mg PO HS [facility] Last Admin: 11/22/17 22:06 Dose: 80 mg Carbidopa/Levodopa (Sinemet *Cr* 25/100 -) 1 combo PO TID@0800,1200,1730 [facility] Last Admin: 11/23/17 17:23 Dose: 1 combo Collagenase (Santyl -) 1 applic TP BID [facility] Last Admin: 11/23/17 10:33 Dose: 1 applic Docusate Sodium (Colace -) 200 mg PO Q12H PRN PRN Reason: CONSTIPATION Last Admin: 11/22/17 10:12 Dose: 200 mg Fentanyl (Duragesic 75mcg Patch -) 1 patch TD Q72H [facility] Last Admin: 11/23/17 16:12 Dose: 1 patch Fluticasone Propionate (Flonase -) 1 spray NS BID [facility] Last Admin: 11/23/17 10:33 Dose: 1 spray Furosemide (Lasix -) 20 mg PO DAILY [facility] Last Admin: 11/23/17 10:32 Dose: Not Given Gabapentin (Neurontin -) 300 mg PO HS [facility] Last Admin: 11/22/17 22:06 Dose: 300 mg Sodium Chloride (Normal Saline -) 1,000 mls @ 42 mls/hr IV ASDIR [facility] Last Admin: 11/23/17 10:33 Dose: 42 mls/hr Metoprolol Succinate (Toprol Xl -) 25 mg PO DAILY [facility] Last Admin: 11/23/17 10:35 Dose: 25 mg Mirtazapine (Remeron -) 7.5 mg PO HS [facility] Last Admin: 11/22/17 22:06 Dose: 7.5 mg Miscellaneous (Duragesic Patch Waste) 1 each TD PRN PRN PRN Reason: PATCH REMOVAL Morphine Sulfate (Ms Contin -) 15 mg PO Q8H PRN PRN Reason: PAIN LEVEL 4 - 6 Last Admin: 11/23/17 10:33 Dose: 15 mg Pantoprazole Sodium (Protonix -) 40 mg PO DAILY [facility] Last Admin: 11/23/17 10:32 Dose: 40 mg Problem List - Problems (1) TIA (transient ischemic attack) Assessment/Plan: acute UE weakness / CT without acute finding Neurology eval declined MRI will discuss further with Neurology Pt evaluation [facility] Code[facility]s): G45.9 - TRANSIENT CEREBRAL ISCHEMIC ATTACK, UNSPECIFIED (2) Fibrosis, pulmonary, interstitial, diffuse Assessment/Plan: resume medications / nebulizers Pulmonary evaluation appreciated Had been on hospice for ILD about 1 yr ago limited activity / tolerance/ Code(s): J84.10 - PULMONARY FIBROSIS, UNSPECIFIED (3) Palacios esophagus Code(s): K22.70 - PALACIOS'S ESOPHAGUS WITHOUT DYSPLASIA (4) Chronic hypoxemic respiratory failure Code(s): J96.11 - CHRONIC RESPIRATORY FAILURE WITH HYPOXIA (5) Pulmonary fibrosis Code(s): J84.10 - PULMONARY FIBROSIS, UNSPECIFIED (6) Weakness Code(s): R53.1 - WEAKNESS (7) Chronic pain Code(s): G89.29 - OTHER CHRONIC PAIN (8) Spinal stenosis of lumbar region with radiculopathy Code(s): M48.061 - SPINAL STENOSIS, LUMBAR REGION WITHOUT NEUROGENIC MARTIN; M54.16 - RADICULOPATHY, LUMBAR REGION (9) Spinal stenosis in cervical region Code(s): M48.02 - SPINAL STENOSIS, CERVICAL REGION (10) GERD (gastroesophageal reflux disease) Code(s): K21.9 - GASTRO-ESOPHAGEAL REFLUX DISEASE WITHOUT ESOPHAGITIS (11) Constipation due to opioid therapy Code(s): K59.03 - DRUG INDUCED CONSTIPATION; T40.2X5A - ADVERSE EFFECT OF OTHER OPIOIDS, INITIAL ENCOUNTER
[2017-11-23] MEDS: GABAPENTIN 300 MG CAPSULE (FP) PO SCH (21:39)
[2017-11-23] MEDS: ATORVASTATIN CA 80 MG TABLET (FP) PO SCH (21:39)
[2017-11-23] MEDS: MIRTAZAPINE 15 MG TABLET (FP) PO SCH (21:40)
[2017-11-24] MEDS: ALBUTEROL SO4 2.5/IPRATROPIUM 0.5 INH SOL 3 ML VIAL.NEB. NEB SCH ×2 (07:27→13:42)
[2017-11-24] MEDS: FUROSEMIDE 20 MG TABLET (FP) PO SCH ×2 (08:52→09:38)
[2017-11-24] MEDS: ASPIRIN COATED 81 MG TABLET.EC PO SCH ×2 (08:52→09:37)
[2017-11-24] MEDS: PANTOPRAZOLE 40 MG TABLET (FP) PO SCH ×2 (08:52→09:38)
[2017-11-24] MEDS: metoPROLOL SUCCINATE 25 MG TAB.SR.24H (FP) PO SCH ×2 (08:52→09:38)
[2017-11-24] MEDS: ALPRAZolam 0.25 MG TABLET PO SCH ×3 (08:52→13:14)
[2017-11-24] MEDS: SODIUM CHLORIDE 1,000 ML IV SCH (09:10)
[2017-11-24] MEDS: FLUTICASONE PROP 0.05% 16 GM NASAL SPRAY NS SCH (09:37)
[2017-11-24] MEDS: COLLAGENASE CLOSTRIDIUM HIST. 30 GRAMS TUBE TP SCH (09:38)
--- NOTE | 2017-11-24 11:23 | DS ---
Physical Examination Vital Signs: Vital Signs Temperature 97.6 F 11/24/17 05:00 Pulse Rate 58 L 11/24/17 05:00 Respiratory Rate 20 11/24/17 05:00 Blood Pressure 120/62 11/24/17 05:00 O2 Sat by Pulse Oximetry (%) 94 L 11/23/17 20:30 Constitutional: Yes: Well Nourished (Pt very anxious about being in hosp. Plan [facility] Anxious Eyes: Yes: WNL, Conjunctiva Clear HENT: Yes: WNL, Normocephalic Neck: Yes: WNL Cardiovascular: Yes: WNL, Regular Rate and Rhythm Respiratory: Yes: WNL, Diminished, On Nasal O2 Gastrointestinal: Yes: WNL Extremities: Yes: WNL Edema: No Peripheral Pulses WNL: Yes Integumentary: Yes: WNL Neurological: Yes: WNL, Alert, Oriented ...Motor Strength: WNL Psychiatric: Yes: WNL, Agitated Labs: CBC, BMP 11/23/17 05:05 11/23/17 05:05 Discharge Summary Reason For Visit: WEAKNESS Current Active Problems Palacios esophagus (Acute) Chronic hypoxemic respiratory failure (Acute) Chronic pain (Acute) Constipation due to opioid therapy (Acute) Fibrosis, pulmonary, interstitial, diffuse (Acute) GERD (gastroesophageal reflux disease) (Acute) Pulmonary fibrosis (Acute) Spinal stenosis in cervical region (Acute) Spinal stenosis of lumbar region with radiculopathy (Acute) TIA (transient ischemic attack) (Acute) Weakness (Acute) Condition: Stable - Instructions Referrals: Carlos Eduardo Pisano [Primary Care Provider] - - Home Medications Comprehensive Discharge Medication List: Ambulatory Orders Alprazolam [Xanax] 0.5 mg PO TID 11/21/17 Aspirin [Aspirin EC] 81 mg PO HS 11/21/17 Atorvastatin Ca [Lipitor] 80 mg PO HS 11/21/17 Baclofen 10 mg PO BID 11/21/17 Cholecalciferol (Vitamin D3) [Vitamin D3] 5,000 unit PO DAILY 11/21/17 Esomeprazole Magnesium [Nexium 24Hr] 40 mg PO DAILY PRN 11/21/17 FENTANYL 25mcg PATCH [DURAGESIC 25mcg PATCH -] 75 mcg TD Q72H 11/21/17 Fluticasone Prop 0.05% Nasal [Flonase -] 1 spray NS BID PRN 11/21/17 Furosemide [Lasix -] 20 mg PO DAILY 11/21/17 Gabapentin [Neurontin] 300 mg PO HS 11/21/17 Hypromellose 0.5% Opth Soln [Artificial Tears] 1 drop OU BID PRN 11/21/17 Metoprolol Succinate [Toprol Xl -] 25 mg PO DAILY 11/21/17 Mirtazapine 7.5 mg PO HS 11/21/17 Morphine *Sr* [Ms Contin -] 15 mg PO Q8H PRN 11/21/17 Naproxen [EC-Naprosyn 375 MG] 375 mg PO BID PRN 11/21/17 Sennosides [Senna] 1 tab PO BID 11/21/17 Sodium Chloride [[place] Saline] 1 spr NS BID PRN 11/21/17
--- NOTE | 2017-11-24 12:01 | PN ---
Progress Note, Physician History of Present Illness: PULMONARY ALERT, COMFORTABLE AT REST ,+ MAY - Current Medication List Current Medications: Active Medications Albuterol/Ipratropium (Duoneb -) 1 amp NEB RTID [facility] Last Admin: 11/24/17 07:27 Dose: 1 amp Alprazolam (Xanax -) 0.5 mg PO QID [facility] Last Admin: 11/24/17 09:38 Dose: Not Given Aspirin (Ecotrin -) 81 mg PO DAILY [facility] Last Admin: 11/24/17 09:37 Dose: Not Given Atorvastatin Calcium (Lipitor -) 80 mg PO [facility] Last Admin: 11/23/17 21:39 Dose: 80 mg Carbidopa/Levodopa (Sinemet *Cr* 25/100 -) 1 combo PO TID@0800,1200,1730 [facility] Last Admin: 11/24/17 11:17 Dose: 1 combo Collagenase (Santyl -) 1 applic TP BID [facility] Last Admin: 11/24/17 09:38 Dose: 1 applic Docusate Sodium (Colace -) 200 mg PO Q12H PRN PRN Reason: CONSTIPATION Last Admin: 11/22/17 10:12 Dose: 200 mg Fentanyl (Duragesic 75mcg Patch -) 1 patch TD Q72H [facility] Last Admin: 11/23/17 16:12 Dose: 1 patch Fluticasone Propionate (Flonase -) 1 spray NS BID [facility] Last Admin: 11/24/17 09:37 Dose: 1 spray Furosemide (Lasix -) 20 mg PO DAILY [facility] Last Admin: 11/24/17 09:38 Dose: Not Given Gabapentin (Neurontin -) 300 mg PO [facility] Last Admin: 11/23/17 21:39 Dose: 300 mg Sodium Chloride (Normal Saline -) 1,000 mls @ 42 mls/hr IV ASDIR [facility] Last Admin: 11/24/17 09:10 Dose: Not Given Metoprolol Succinate (Toprol Xl -) 25 mg PO DAILY [facility] Last Admin: 11/24/17 09:38 Dose: Not Given Mirtazapine (Remeron -) 7.5 mg PO [facility] Last Admin: 11/23/17 21:40 Dose: 7.5 mg Miscellaneous (Duragesic Patch Waste) 1 each TD PRN PRN PRN Reason: PATCH REMOVAL Morphine Sulfate (Ms Contin -) 15 mg PO Q8H PRN PRN Reason: PAIN LEVEL 4 - 6 Last Admin: 11/23/17 22:56 Dose: 15 mg Pantoprazole Sodium (Protonix -) 40 mg PO DAILY [facility] Last Admin: 11/24/17 09:38 Dose: Not Given - Objective Vital Signs: Vital Signs Temperature 97.6 F 11/24/17 05:00 Pulse Rate 58 L 11/24/17 05:00 Respiratory Rate 20 11/24/17 05:00 Blood Pressure 120/62 11/24/17 05:00 O2 Sat by Pulse Oximetry (%) 94 L 11/23/17 20:30 Constitutional: Yes: Well Nourished, Calm Eyes: Yes: WNL HENT: Yes: WNL Neck: Yes: WNL Cardiovascular: Yes: Regular Rate and Rhythm, S1, S2 Respiratory: Yes: Rales (BILATERAL CRACKLES) Gastrointestinal: Yes: Normal Bowel Sounds, Soft Extremities: Yes: WNL Edema: Yes Labs: CBC, BMP 11/23/17 05:05 11/23/17 05:05 INR, PTT INR 1.19 (0.82-1.09) H 11/21/17 08:20 Problem List - Problems (1) Pulmonary fibrosis Code(s): J84.10 - PULMONARY FIBROSIS, UNSPECIFIED (2) Weakness Code(s): R53.1 - WEAKNESS (3) Chronic hypoxemic respiratory failure Code(s): J96.11 - CHRONIC RESPIRATORY FAILURE WITH HYPOXIA (4) Alonzo esophagus Code(s): K22.70 - ALONZO'S ESOPHAGUS WITHOUT DYSPLASIA Assessment/Plan IMP CHRONIC HYPOXEMIC RESPIRATORY FAILURE ADVANCED ILD/PULMONARY FIBROSIS WEAKNESS ? TIA BARRETTS ESOPHAGUS H/O SKIN CA OSTEOARTHRITIS PLAN O2 INHALED BRONCHODILATORS PT DR SALAS Problem List - Problems (1) Pulmonary fibrosis Code(s): J84.10 - PULMONARY FIBROSIS, UNSPECIFIED (2) Weakness Code(s): R53.1 - WEAKNESS (3) Chronic hypoxemic respiratory failure Code(s): J96.11 - CHRONIC RESPIRATORY FAILURE WITH HYPOXIA (4) Alonzo esophagus Code(s): K22.70 - ALONZO'S ESOPHAGUS WITHOUT DYSPLASIA
[2017-11-24 13:42] VITALS: BP 143/77; PULSE 79; TEMP 98
--- NOTE | 2017-11-24 15:08 | EKG ---
Test Reason : Blood Pressure : / mmHG Vent. Rate : 065 BPM Atrial Rate : 065 BPM P-R Int : 176 ms QRS Dur : 092 ms QT Int : 402 ms P-R-T Axes : 000 001 002 degrees QTc Int : 418 ms SINUS RHYTHM WITH OCCASIONAL PREMATURE VENTRICULAR COMPLEXES AND PREMATURE ATRIAL COMPLEXES OTHERWISE NORMAL ECG WHEN COMPARED WITH ECG OF 23-NOV-2017 09:02, NO SIGNIFICANT CHANGE WAS FOUND Confirmed by NALLELY PAGAN MD ([id number]) on 11/24/2017 3:07:37 PM Referred By: ANH Confirmed By:NALLELY PAGAN MD
== END 2017-11-24 14:52 | DRG 57 ==
LOC: JER 07:47 → JERBED 10:18 → J4W 16:19
PROVIDERS: ADMIT Family Medicine; ATTEND Family Medicine
DX: G20 Parkinson's disease (principal); G45.8 Other transient cerebral ischemic attacks and related syndromes; J96.11 Chronic respiratory failure with hypoxia; K22.70 Barrett's esophagus without dysplasia; J84.112 Idiopathic pulmonary fibrosis; M19.90 Unspecified osteoarthritis, unspecified site; G62.89 Other specified polyneuropathies; K21.9 Gastro-esophageal reflux disease without esophagitis; I10 Essential (primary) hypertension; F41.9 Anxiety disorder, unspecified; M54.5 Low back pain; M48.02 Spinal stenosis, cervical region; R29.709 NIHSS score 9; R53.1 Weakness; G89.29 Other chronic pain; M48.061 Spinal stenosis, lumbar region without neurogenic claudication; M54.16 Radiculopathy, lumbar region; K59.03 Drug induced constipation; T40.2X5A Adverse effect of other opioids, initial encounter; Z85.828 Personal history of other malignant neoplasm of skin; Z96.641 Presence of right artificial hip joint
CPT/HCPCS: 36415; 70450-TC; 71045-TC-FY; 71250-TC; 80048; 80053; 80061; 81003; 82465; 82550; 82553; 82607; 83036; 83718; 83721; 83735; 84443; 84478; 84484; 85025; 85610; 86850; 86900; 86901; 87040; 93005; 93010; 94640; 97116-GP; 97161-GP; 99285-25

== ENCOUNTER 2018-08-23 09:58 | Inpatient (IN) | payer OTHER ==
--- NOTE | 2018-08-23 10:45 | PDOC ---
History of Present Illness - General History Source: Patient Exam Limitations: No Limitations - History of Present Illness Initial Comments: 08/23/18 12:25 Mr. Diaz is a 77 year old male with past medical history significant for Squamous cell CA, R. hip replacement with arthritis, cataracts, PCI (2012), HTN , HLD, Palacios esophagus, Chronic hypoxemic respiratory failure, GERD, Pulmonary fibrosis (continuous O2 3-4L), Cervical spinal stenosis, Lumbar spinal stenosis w/ radiculopathy, hx of TIA, constipation secondary to opioid therapy presents to the emergency department from [facility] via EMS with AMS and increased weakness. Per aide, who is at the bedside, for the past 4 days, the patients been having increased confusion with difficulty recalling place and name, and trouble with ambulation. The aide reports the patients mental status did improve today, and he was able to recall his name and place. Per aide, the patients been constipated for the past 4 days, with a small bowel movement earlier today. The patient reports his last enema was on Tuesday. The patient was started on Albuterol (inhaler), Z-pack and prednisone 2 days ago. The aide states since last week the patients been having SOB, with increased O2 titration. Denies taking his morning medication: Fentanyl 50 mg, Tylenol, Gabapentin, and Morphine 15 mg PRN. Denies changes in appetite, fever, chills, chest pain. Per Father Dm, prior to the episodes of confusions yesterday, the father found an empty bottle of cough medication that in the patients room. Father Dm reports since the hospice care the patients been known to abuse Xanax or request Marijuana from his healthcare providers. Allergies: Contrast,, omeprazole, shellfish derived. Social history: Former smoker PCP: Dr. Pisano. Engineering Professor: Dr. Salmon. Father Dm: [phone] Code status: DNI/DNR <aMrta Guardado - Last Filed: 08/23/18 12:27> - General History Source: Patient Exam Limitations: No Limitations <Mone Guallpa - Last Filed: 08/23/18 12:45> - General Chief Complaint: Respiratory Stated Complaint: AMS Time Seen by Provider: 08/23/18 10:24 Past History <Marta Guardado - Last Filed: 08/23/18 12:27> - Past Medical History Cancer: Yes (SKIN, SQUAMOUS CELL FOREHEAD/LEG) Cardiac Disorders: Yes (STENT) COPD: No GI Disorders: Yes (BARRETS ESOPHAGUS) Other medical history: PULMONARY FIBROSIS, OX DEP, - Surgical History Cardiac Surgery: Yes (CATH&STENT) - Suicide/Smoking/Psychosocial Hx Smoking History: Never smoked <Mone Guallpa - Last Filed: 08/23/18 12:45> - Past Medical History Allergies/Adverse Reactions: Allergies Allergy/AdvReac Type Severity Reaction Status Date / Time Iodinated Contrast- Oral and Allergy Verified 08/23/18 10:22 IV Dye omeprazole Allergy Verified 08/23/18 10:22 shellfish derived Allergy Verified 08/23/18 10:22 Home Medications: Ambulatory Orders Alprazolam [Xanax] 1 mg PO TID 11/21/17 Aspirin [Aspirin EC] 81 mg PO HS 11/21/17 Atorvastatin Ca [Lipitor] 80 mg PO HS 11/21/17 Baclofen 10 mg PO BID 11/21/17 Cholecalciferol (Vitamin D3) [Vitamin D3] 5,000 unit PO DAILY 11/21/17 Esomeprazole Magnesium [Nexium 24Hr] 40 mg PO DAILY PRN 11/21/17 FENTANYL 25mcg PATCH [DURAGESIC 25mcg PATCH -] 50 mcg TD Q72H 11/21/17 Fluticasone Prop 0.05% Nasal [Flonase -] 1 spray NS BID PRN 11/21/17 Furosemide [Lasix -] 20 mg PO DAILY 11/21/17 Gabapentin [Neurontin] 300 mg PO HS 11/21/17 Hypromellose 0.5% Opth Soln [Artificial Tears] 1 drop OU BID PRN 11/21/17 Metoprolol Succinate [Toprol Xl -] 25 mg PO DAILY 11/21/17 Mirtazapine 7.5 mg PO HS 11/21/17 Morphine *Sr* [Ms Contin -] 15 mg PO Q6H PRN 11/21/17 Naproxen [EC-Naprosyn 375 MG] 375 mg PO BID PRN 11/21/17 Sennosides [Senna] 1 tab PO BID 11/21/17 Sodium Chloride [[place] Saline] 1 spr NS BID PRN 11/21/17 Albuterol 0.083% Nebulizer Chanell [Ventolin 0.083%] 1 neb NEB QID 08/23/18 Azithromycin 250 mg PO DAILY 08/23/18 Docusate Sodium [Colace] 100 mg PO BID 08/23/18 Pantoprazole Sodium [Protonix] 40 mg PO DAILY 08/23/18 Prednisone [Deltasone] 20 mg PO DAILY 08/23/18 Review of Systems - Review of Systems Able to Perform ROS?: Yes Comments:: 08/23/18 12:26 Constitutional: no fevers or chills. HEENT: no headache or dizziness. +Runny nose. No congestion. No visual/hearing disturbances. CVS: no cp or syncope. Resp: +Increased sob, cough with yellow production. Abdomen: no abdominal pain, nausea or vomiting. Genitourinary: no urinary sx, hematuria. MUSCULOSKELETAL: +L. Hip pain, chronic in nature. No other joint pain and swelling. No neck or back pain. SKIN: no redness or skin changes, no discharge, no rash. No wounds. Hematologic: no easy bruising/bleeding. NEUROLOGIC: +AMS, Increased confusion with difficulty ambulation, weakness. No headache, dizziness, LOC. No numbness or tingling. All other systems reviewed and negative, or as documented in HPI. <Marta Guardado - Last Filed: 08/23/18 12:27> *Physical Exam - Vital Signs Last Vital Signs Temp Pulse Resp BP Pulse Ox 97.5 F L 89 25 H 136/69 95 08/23/18 10:22 08/23/18 12:02 08/23/18 12:02 08/23/18 12:02 08/23/18 12:02 - Physical Exam Comments: 08/23/18 12:27 General: Well appearing, awake and alert, NAD. HEENT: NCAT, PERRL, EOMI, clear conjunctiva, anicteric, moist mucus membranes, clear oropharynx, no oral lesions.. Neck: neck supple, FROM Resp: +Bilateral crackles, no wheezing. Mild tachypnea CVS: +Holosystolic murmur. RRR, 2+ peripheral pulses throughout, no peripheral edema Abdomen: soft, NTND, no peritoneal signs. Back: nontender, normal inspection and ROM MSK: no edema, TRENT x4, ROM intact. No clubbing or cyanosis. normal bulk and tone. +left hip TTP Extremities: no calf tenderness Neuro: alert, oriented appropriately; no focal neurologic deficits Skin: warm and well perfused, cap refill <2 sec, normal color <Marta Guardado - Last Filed: 08/23/18 12:27> - Vital Signs Last Vital Signs Temp Pulse Resp BP Pulse Ox 97.5 F L 87 24 H 123/71 94 L 08/23/18 10:22 08/23/18 10:22 08/23/18 10:22 08/23/18 10:22 08/23/18 10:30 <Mone Guallpa - Last Filed: 08/23/18 12:45> Moderate Sedation - Procedure Monitoring Vital Signs: Procedure Monitoring Vital Signs Temperature 97.5 F L 08/23/18 10:22 Pulse Rate 89 08/23/18 12:02 Respiratory Rate 25 H 08/23/18 12:02 Blood Pressure 136/69 08/23/18 12:02 O2 Sat by Pulse Oximetry (%) 95 08/23/18 12:02 <Marta Guardado - Last Filed: 08/23/18 12:27> - Procedure Monitoring Vital Signs: Procedure Monitoring Vital Signs Temperature 97.5 F L 08/23/18 10:22 Pulse Rate 87 08/23/18 10:22 Respiratory Rate 24 H 08/23/18 10:22 Blood Pressure 123/71 08/23/18 10:22 O2 Sat by Pulse Oximetry (%) 94 L 08/23/18 10:30 <Mone Guallpa - Last Filed: 08/23/18 12:45> Heart Score/ECG Review - ECG Impressions Normal ECG: No Comment:: 08/23/18 12:19 EKG normal sinus rhythm, no interval abnormalities, narrow QRS, ST and T wave segments and morphology normal. Nonspecific T wave abnormalities <Mone Guallpa - Last Filed: 08/23/18 12:45> ED Treatment Course - LABORATORY CBC & Chemistry Diagram: 08/23/18 11:00 08/23/18 11:00 - ADDITIONAL ORDERS Additional order review: Laboratory Results 08/23/18 08/23/18 08/23/18 11:25 11:18 11:00 PT with INR INR VBG pH 7.41 POC VBG pCO2 64.5 H* POC VBG pO2 38.3 Mixed VBG HCO3 40.3 H* Sodium Potassium Chloride Carbon Dioxide Anion Gap BUN Creatinine Creat Clearance w eGFR Random Glucose Lactic Acid 1.7 Calcium Total Bilirubin AST ALT Alkaline Phosphatase Troponin I Total Protein Albumin Opiates Screen Negative Methadone Screen Negative Barbiturate Screen Negative Phencyclidine Screen Negative Ur Amphetamines Screen Negative MDMA (Ecstasy) Screen Negative Benzodiazepines Screen Positive A* Cocaine Screen Negative U Marijuana (THC) Screen Negative 08/23/18 08/23/18 11:00 11:00 PT with INR 14.10 H INR 1.19 H VBG pH POC VBG pCO2 POC VBG pO2 Mixed VBG HCO3 Sodium 139 Potassium 3.8 Chloride 92 L Carbon Dioxide 40 H Anion Gap 6 L BUN 9 Creatinine 0.8 Creat Clearance w eGFR > 60 Random Glucose 125 H Lactic Acid Calcium 8.9 Total Bilirubin 0.4 AST 17 ALT 21 Alkaline Phosphatase 91 Troponin I < 0.02 Total Protein 7.3 Albumin 3.2 L Opiates Screen Methadone Screen Barbiturate Screen Phencyclidine Screen Ur Amphetamines Screen MDMA (Ecstasy) Screen Benzodiazepines Screen Cocaine Screen U Marijuana (THC) Screen 08/23/18 11:00 RBC 4.03 MCV 97.9 H MCHC 32.5 RDW 13.7 MPV 8.0 D Neutrophils % 74.7 Lymphocytes % 14.7 D Monocytes % 9.1 Eosinophils % 1.2 Basophils % 0.3 - Medications Given in the ED: ED Medications Discontinued Medications Generic Name Dose Route Start Last Admin Trade Name Severoq PRN Reason Stop Dose Admin Acetaminophen 1,000 mg 08/23/18 11:33 08/23/18 11:45 Ofirmev Injection - IVPB 08/23/18 11:34 1,000 mg ONCE ONE Administration Lidocaine 1 patch 08/23/18 11:33 08/23/18 11:50 Lidoderm Patch - TP 08/23/18 11:34 1 patch ONCE ONE Administration <Marta Guardado - Last Filed: 08/23/18 12:27> - LABORATORY CBC & Chemistry Diagram: 08/23/18 11:00 08/23/18 11:00 <Mone Guallpa - Last Filed: 08/23/18 12:45> Medical Decision Making - Medical Decision Making 08/23/18 11:22 HPI as documented. DNR/DNI. DDx SOB: ACS, PE, CHF, pulmonary edema, pleurisy, pneumonia, viral syndrome. effusion. anemia, electrolyte/metabolic derangements. influenza, ILD flare. vitals reviewed, mildly tachypneic and borderline sats ~92% on 3LO2, uptitrated to 5L O2 for hypoxia no fever here Prior notes reviewed, including admissions, discharges and consultations. laboratory results and imaging reviewed, basic labs and lytes wnl, Utox pending. neg flu testing. VBG with normal pH, so doubt derangement CXR_with ILD findings, chronic bronchiectasis, no acute changes, no focal infiltrate. Cardiac panel_neg trop EKG normal sinus rhythm, no interval abnormalities, narrow QRS, ST and T wave segments and morphology normal. Nonspecific T wave abnormalities ED course: analgesia with topical lidoderm patch and tylenol. hold off on further opioids as he has been experiencing side effects/sedation/AMS with benzo /opioid abuse. sputum cx sent; remainder of infectious workup pending no fever or systemic findings, defer abx treating for now. currently on z rajeev, albuterol PRN and prednisone, which can help with his ILD flare. benzo positive on Utox. Dispo: admit to Dr. Marcelo, agree with pain Admit for SOB/hypoxia, increased O2 need, ILD flare. Discussed results and management plan with pt and family member/RN at bedside, agree with impression and plan 08/23/18 12:43 <Mone Guallpa - Last Filed: 08/23/18 12:45> *DC/Admit/Observation/Transfer - Attestations Scribe Attestion: 08/23/18 12:27 Documentation prepared by Marta Guardado, acting as medical office administrator for Mone Guallpa MD. <Marta Guardado - Last Filed: 08/23/18 12:27> - Discharge Dispostion Decision to Admit order: Yes Decision to Admit order Date/Time: 08/23/18 12:43 Decision to Admit Order Category Date Time Status Decision to Admit to Hospital Routine Admission 08/23/18 12:24 Active - Attestations Physician Attestion: 08/23/18 10:45 I, Mone Guallpa MD, attest that this document has been prepared under my direction and personally reviewed by me in its entirety. I further attest, that it accurately reflects all work, treatment, procedures and medical decision -making performed by me. <Mone Guallpa - Last Filed: 08/23/18 12:45> Diagnosis at time of Disposition: Shortness of breath, Pulmonary fibrosis - Discharge Dispostion Condition at time of disposition: Guarded
[2018-08-23 11:25] LABS: BASO % 0.3 % (0-2.0); EOS % 1.2 % (0-4.5); HEMATOCRIT 39.5 % (35.4-49); HEMOGLOBIN 12.8 GM/dL (11.7-16.9); LYMPH % 14.7 % (8-40); MCH 31.8 pg (25.7-33.7); MCHC 32.5 g/dl (32.0-35.9); MEAN CELL VOLUME 97.9 fl (80-96); MONO % 9.1 % (3.8-10.2); NEUT % 74.7 % (42.8-82.8); PLATELET COUNT 221 K/MM3 (134-434); RBC 4.03 M/mm3 (4.00-5.60); RDW 13.7 % (11.9-15.9); WHITE BLOOD COUNT 9.6 K/mm3 (4.0-10.0)
[2018-08-23 11:30] LABS: VENOUS PC02 64.5 mmHg (38-52); VENOUS PH 7.41 (7.32-7.42); VENOUS PO2 38.3 mmHg (28-48)
[2018-08-23] MEDS ORDERED: LIDOCAINE 5% TOPICAL PATCH TP ONE (11:33)
[2018-08-23] MEDS ORDERED: ACETAMINOPHEN 1000 MG/100 ML VIAL (NON FORMULARY) IVPB ONE (11:33)
[2018-08-23] MEDS ORDERED: ACETAMINOPHEN INJECTION 100 ML IVPB ONE (11:36)
[2018-08-23] MEDS ORDERED: LIDOCAINE 5% TOPICAL PATCH ONE ×2 (11:36→11:37)
[2018-08-23 11:37] LABS: INR 1.19 (0.83-1.09); PROTHROMBIN TIME (PATIENT) 14.1 SEC (9.7-13.0)
[2018-08-23 11:55] LABS: ALBUMIN 3.2 g/dl (3.4-5.0); ALK PHOS 91 U/L (45-117); ANION GAP 6 MMOL/L (8-16); BILIRUBIN,TOTAL 0.4 mg/dL (0.2-1); BLOOD UREA NITROGEN 9 mg/dL (7-18); CALCIUM 8.9 mg/dL (8.5-10.1); CHLORIDE 92 mmol/L (98-107); CO2 40 mmol/L (21-32); CREATININE 0.8 mg/dL (0.55-1.3); GLUCOSE,RANDOM 125 mg/dL (74-106); POTASSIUM 3.8 mmol/L (3.5-5.1); SGOT/AST 17 U/L (15-37); SGPT/ALT 21 U/L (13-61); SODIUM 139 mmol/L (136-145); TOT PROT 7.3 g/dl (6.4-8.2)
[2018-08-23 12:10] LABS: COCAINE, UR NEGATIVE ng/ml (CUTOFF=300); METHADONE, UR NEGATIVE ng/ml (CUTOFF=300); OPIATES, URI NEGATIVE ng/ml (CUTOFF=300); PHENCYCLIDINE,URINE NEGATIVE ng/ml (CUTOFF=25); URINE AMPHETAMINES NEGATIVE ng/ml (CUTOFF=500); URINE BARBITURATES NEGATIVE ng/ml (CUTOFF=200)
[2018-08-23 12:23] LABS: URINE BENZODIAZEPINES POSITIVE ng/ml (CUTOFF=200)
[2018-08-23] MEDS ORDERED: SODIUM CHLORIDE NASAL SPRAY 44 ML BOTTLE NS PRN (13:15)
[2018-08-23] MEDS ORDERED: fentaNYL 25mcg/hr PATCH.TD72 TD SCH (13:15)
[2018-08-23] MEDS ORDERED: ARTIFICIAL TEARS (POLYVINYL ALCOHOL) OPTH DROPS OU PRN (13:15)
[2018-08-23] MEDS ORDERED: FLUTICASONE PROP 0.05% 16 GM NASAL SPRAY NS PRN (13:15)
[2018-08-23 14:43] VITALS: BMI 39.4
[2018-08-23] MEDS ORDERED: FENTANYL PATCH WASTE TD PRN (14:44)
[2018-08-23] MEDS: AZITHROMYCIN IVPB 500 MG/250 ML BAG IVPB SCH (15:05)
[2018-08-23] MEDS: ALPRAZolam 2 MG TABLET PO SCH ×2 (15:05→21:47)
[2018-08-23] MEDS ORDERED: fentaNYL 50mcg/hr PATCH.TD72 TD SCH (15:19)
--- NOTE | 2018-08-23 15:24 | PN ---
Progress Note (short form) - Note Progress Note: PULMONARY CONSULTATION DICTATED 08/23/18 IMP ACUTE ON CHRONIC HYPOXEMIC RESPIRATORY FAILURE CHRONIC HYPERCAPNEIC RESPIRATORY FAILURE END STAGE ILD/PULMONARY FIBROSIS ? PNEUMONIA ASHD S/P STENT HTN HLD BARRETTS ESOPHAGUS PLAN IV STEROIDS INHALED BRONCHODILATORS O2 ABX F/U CHEST X-RAY SPUTUM C+S DR SALAS Problem List - Problems (1) Acute on chronic respiratory failure with hypoxemia Code(s): J96.21 - ACUTE AND CHRONIC RESPIRATORY FAILURE WITH HYPOXIA (2) Pulmonary fibrosis Code(s): J84.10 - PULMONARY FIBROSIS, UNSPECIFIED (3) Shortness of breath Code(s): R06.02 - SHORTNESS OF BREATH (4) Chronic pain Code(s): G89.29 - OTHER CHRONIC PAIN (5) Fibrosis, pulmonary, interstitial, diffuse Code(s): J84.10 - PULMONARY FIBROSIS, UNSPECIFIED (6) Constipation due to opioid therapy Code(s): K59.03 - DRUG INDUCED CONSTIPATION; T40.2X5A - ADVERSE EFFECT OF OTHER OPIOIDS, INITIAL ENCOUNTER (7) Weakness Code(s): R53.1 - WEAKNESS
--- NOTE | 2018-08-23 15:47 | EKG ---
Test Reason : Blood Pressure : / mmHG Vent. Rate : 082 BPM Atrial Rate : 082 BPM P-R Int : 158 ms QRS Dur : 092 ms QT Int : 368 ms P-R-T Axes : 070 009 -15 degrees QTc Int : 429 ms SINUS RHYTHM WITH PREMATURE SUPRAVENTRICULAR COMPLEXES NONSPECIFIC ST AND T WAVE ABNORMALITY ABNORMAL ECG WHEN COMPARED WITH ECG OF 24-NOV-2017 09:42, PREMATURE VENTRICULAR COMPLEXES ARE NO LONGER PRESENT NONSPECIFIC T WAVE ABNORMALITY NOW EVIDENT IN ANTEROLATERAL LEADS Confirmed by FERNANDO FLEMING MD ([id number]) on 08/23/2018 3:47:00 PM Referred By: Confirmed By:FERNANDO FLEMING MD
[2018-08-23] MEDS: ALBUTEROL SO4 2.5/IPRATROPIUM 0.5 INH SOL 3 ML VIAL.NEB. NEB SCH ×2 (16:17→20:37)
--- NOTE | 2018-08-23 16:47 | CONS ---
PULMONARY CONSULTATION DATE OF CONSULTATION: 08/23/2018 REFERRING PHYSICIAN: Linda Vazquez MD HISTORY OF PRESENT ILLNESS: The patient is a 77-year-old, white male with a past medical history significant for squamous cell CA, right hip replacement with arthritis, cataracts, ASHD status post PCI, hypertension, chronic hypoxemic respiratory failure on O2, interstitial lung disease, pulmonary fibrosis, GERD, Palacios esophagus, hyperlipidemia, history of TIA, admitted to [facility] with complaint of increased confusion, shortness of breath, cough productive of yellow sputum. Apparently, the patient has chronic constipation secondary to opioid therapy due to chronic pain. As per the patient, he has been constipated for the past 4 days. He also noted progressive weakness and shortness of breath requiring a higher FiO2 to maintain his O2 saturations. The patient has a history of smoking; quit greater than 40 years ago. There is no history of occupational exposure to chemicals or fumes. PAST MEDICAL HISTORY: Again, includes advanced pulmonary fibrosis, interstitial lung disease with chronic hypoxemic respiratory failure, Palacios esophagus, hypertension, hyperlipidemia, ASHD status post PCI, arthritis, squamous cell CA. REVIEW OF SYSTEMS: Positive dyspnea. Positive orthopnea. Positive cough. Positive chest congestion. No fever. Positive chills. CURRENT MEDICATIONS: Include Solu-Medrol, Lidoderm, Zithromax, Neurontin, Remeron, Xanax, DuoNeb, Toprol, Colace, senna, Flonase, artificial tears, [place] nasal spray, Lipitor, Lasix, Ecotrin, and Duragesic. PHYSICAL EXAMINATION: General: The patient is an elderly male, well developed, awake, alert, dyspneic. Vital signs: He is currently afebrile, blood pressure is 154/98, respiratory rate is 18, O2 saturation is 92% on 3 L. HEENT: Exam is normocephalic, atraumatic. Neck: Supple. Heart: Regular S1 and S2. Chest: Bilateral crackles throughout. Abdomen: Soft. Bowel sounds are positive. Extremities: No cyanosis, edema. LABORATORIES: WBC is 9.6, hemoglobin 12.8, hematocrit 39.5, platelet count 221, 000. Venous blood gas pH of 7.41, PCO2 of 64, PO2 of 38, BUN 9, creatinine 0.8. IMAGING: Chest x-ray: Poor inspiratory effort. Chronic interstitial changes. Bronchiectasis positive bilaterally and a few possible underlying pneumonic infiltrates. IMPRESSION: 1. Acute on chronic hypoxemic respiratory failure, secondary to possible pneumonia.Chronic hypercapneic respiratory failure. 2. Advanced interstitial lung disease, pulmonary fibrosis. Oxygen dependent. 3. Atherosclerotic heart disease, status post percutaneous coronary intervention. 4. Hypertension. 5. Hyperlipidemia. 6. Palacios esophagus. PLAN: IV steroids. Inhaled bronchodilators. Supplemental O2. Antibiotics. Sputum C and S. Analgesics. Joanne [id number] MTDD
[2018-08-23] MEDS: methylPREDNISolone NA SUCC 40 MG/1 ML VIAL IVPUSH SCH (17:33)
[2018-08-23] MEDS: SENNOSIDES 8.6MG TABLET (FP) PO SCH (21:46)
[2018-08-23] MEDS: GABAPENTIN 300 MG CAPSULE (FP) PO SCH (21:47)
[2018-08-23] MEDS: MIRTAZAPINE 15 MG TABLET (FP) PO SCH (21:49)
[2018-08-23] MEDS: ASPIRIN COATED 81 MG TABLET.EC PO SCH (21:49)
[2018-08-23] MEDS: DOCUSATE SODIUM 100 MG CAPSULE (FP) PO SCH (21:49)
[2018-08-23] MEDS: BACLOFEN 10 MG TABLET (FP) PO SCH (21:49)
[2018-08-23] MEDS: ATORVASTATIN CA 80 MG TABLET (FP) PO SCH (21:50)
[2018-08-23] MEDS: LIDOCAINE PATCH REMOVAL MC SCH (22:06)
[2018-08-24] MEDS: methylPREDNISolone NA SUCC 40 MG/1 ML VIAL IVPUSH SCH ×3 (02:57→22:17)
[2018-08-24] MEDS: ALPRAZolam 2 MG TABLET PO SCH ×3 (06:07→21:25)
[2018-08-24] MEDS: guaiFENesin 200 MG/10 ML 10 ML UNIT-DOSE CUPS PO PRN ×2 (06:08→10:00)
[2018-08-24] MEDS: ALBUTEROL SO4 2.5/IPRATROPIUM 0.5 INH SOL 3 ML VIAL.NEB. NEB SCH ×4 (07:55→20:24)
[2018-08-24 08:09] LABS: HEMATOCRIT 40.1 % (35.4-49); HEMOGLOBIN 13.8 GM/dL (11.7-16.9); MCH 33.1 pg (25.7-33.7); MCHC 34.5 g/dl (32.0-35.9); MEAN PLT VOLUME 8.6 fl (7.5-11.1); PLATELET COUNT 249 K/MM3 (134-434); RBC 4.18 M/mm3 (4.00-5.60); RDW 13.8 % (11.9-15.9); WHITE BLOOD COUNT 8.1 K/mm3 (4.0-10.0)
[2018-08-24 08:23] LABS: ANION GAP 3 MMOL/L (8-16); BLOOD UREA NITROGEN 11 mg/dL (7-18); CALCIUM 9.4 mg/dL (8.5-10.1); CHLORIDE 93 mmol/L (98-107); CO2 42 mmol/L (21-32); CREATININE 0.7 mg/dL (0.55-1.3); GLUCOSE,RANDOM 131 mg/dL (74-106); POTASSIUM 4.6 mmol/L (3.5-5.1); SODIUM 138 mmol/L (136-145)
[2018-08-24] MEDS: DOCUSATE SODIUM 100 MG CAPSULE (FP) PO SCH ×2 (09:54→21:23)
[2018-08-24] MEDS: SENNOSIDES 8.6MG TABLET (FP) PO SCH ×2 (09:54→21:23)
[2018-08-24] MEDS: CHOLECALCIFEROL (VITAMIN D3) 1,000 UNIT TABLET (FP) PO SCH (09:54)
[2018-08-24] MEDS: metoPROLOL SUCCINATE 25 MG TAB.SR.24H (FP) PO SCH (09:55)
[2018-08-24] MEDS: AZITHROMYCIN IVPB 500 MG/250 ML BAG IVPB SCH (09:55)
[2018-08-24] MEDS: BACLOFEN 10 MG TABLET (FP) PO SCH ×2 (09:57→21:23)
[2018-08-24] MEDS: PANTOPRAZOLE 40 MG TABLET (FP) PO SCH (09:57)
[2018-08-24] MEDS: FUROSEMIDE 20 MG TABLET (FP) PO SCH (10:00)
--- NOTE | 2018-08-24 10:29 | HP ---
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: Peripheral Neuropathy, Parkinson's, TIA Cardiovascular: Yes: HTN Pulmonary: Yes: Pulmonary Fibrosis (had been on Hospice) Gastrointestinal: Yes: Constipation, GERD Psych: Yes: Addictions, Anxiety Musculoskeletal: Yes: Chronic low back pain, Osteoarthritis, Other (spinal and cervical stenosis) Dermatology: Yes: Basal Cell - Past Surgical History Past Surgical History: Yes: Joint Replacement (right hip) - Smoking History Smoking history: Never smoked Have you smoked in the past 12 months: No - Alcohol/Substance Use Hx Alcohol Use: No - Social History ADL: Support Services History of Recent Travel: No Home Medications - Allergies Allergies/Adverse Reactions: Allergies Allergy/AdvReac Type Severity Reaction Status Date / Time Iodinated Contrast- Oral and Allergy Verified 08/23/18 10:22 IV Dye omeprazole Allergy Verified 08/23/18 10:22 shellfish derived Allergy Verified 08/23/18 10:22 - Home Medications Home Medications: Ambulatory Orders Alprazolam [Xanax] 1 mg PO TID 11/21/17 Aspirin [Aspirin EC] 81 mg PO HS 11/21/17 Atorvastatin Ca [Lipitor] 80 mg PO HS 11/21/17 Baclofen 10 mg PO BID 11/21/17 Cholecalciferol (Vitamin D3) [Vitamin D3] 5,000 unit PO DAILY 11/21/17 Esomeprazole Magnesium [Nexium 24Hr] 40 mg PO DAILY PRN 11/21/17 FENTANYL 25mcg PATCH [DURAGESIC 25mcg PATCH -] 50 mcg TD Q72H 11/21/17 Fluticasone Prop 0.05% Nasal [Flonase -] 1 spray NS BID PRN 11/21/17 Furosemide [Lasix -] 20 mg PO DAILY 11/21/17 Gabapentin [Neurontin] 300 mg PO HS 11/21/17 Hypromellose 0.5% Opth Soln [Artificial Tears] 1 drop OU BID PRN 11/21/17 Metoprolol Succinate [Toprol Xl -] 25 mg PO DAILY 11/21/17 Mirtazapine 7.5 mg PO HS 11/21/17 Morphine *Sr* [Ms Contin -] 15 mg PO Q6H PRN 11/21/17 Naproxen [EC-Naprosyn 375 MG] 375 mg PO BID PRN 11/21/17 Sennosides [Senna] 1 tab PO BID 11/21/17 Sodium Chloride [[place] Saline] 1 spr NS BID PRN 11/21/17 Albuterol 0.083% Nebulizer Chanell [Ventolin 0.083%] 1 neb NEB QID 08/23/18 Azithromycin 250 mg PO DAILY 08/23/18 Docusate Sodium [Colace] 100 mg PO BID 08/23/18 Pantoprazole Sodium [Protonix] 40 mg PO DAILY 08/23/18 Prednisone [Deltasone] 20 mg PO DAILY 08/23/18 Review of Systems - Review of Systems Constitutional: reports: No Symptoms, Other (Pain) Eyes: reports: No Symptoms HENT: reports: No Symptoms Neck: reports: No Symptoms Cardiovascular: reports: No Symptoms Respiratory: reports: No Symptoms Gastrointestinal: reports: No Symptoms Genitourinary: reports: No Symptoms Breasts: reports: No Symptoms Reported Musculoskeletal: reports: Extremity Pain Integumentary: reports: No Symptoms Neurological: reports: Confusion Endocrine: reports: No Symptoms Hematology/Lymphatic: reports: No Symptoms Psychiatric: reports: No Symptoms Physical Examination Vital Signs: Vital Signs Temperature 97.5 F L 08/24/18 07:54 Pulse Rate 79 08/24/18 07:54 Respiratory Rate 20 08/24/18 07:54 Blood Pressure 138/60 08/24/18 07:54 O2 Sat by Pulse Oximetry (%) 96 08/23/18 21:00 Constitutional: Yes: Well Nourished Eyes: Yes: Conjunctiva Clear HENT: Yes: Atraumatic, Normocephalic Neck: Yes: Supple, Trachea Midline Cardiovascular: Yes: Regular Rate and Rhythm Respiratory: Yes: Regular, CTA Bilaterally Gastrointestinal: Yes: Normal Bowel Sounds, Abdomen, Obese ...Rectal Exam: Yes: Deferred Renal/: Yes: WNL Musculoskeletal: Yes: WNL Extremities: Yes: WNL Edema: No Peripheral Pulses WNL: Yes Integumentary: Yes: WNL Neurological: Yes: Alert, Oriented ...Motor Strength: WNL Psychiatric: Yes: Alert, Oriented Labs: CBC, BMP 08/24/18 06:00 08/24/18 06:00 Imaging - Results Chest X-ray: Report Reviewed Assessment/Plan Mr. Diaz is a 77 year old male with past medical history of Squamous cell CA, R. hip replacement with arthritis, cataracts, PCI (2012), HTN, HLD, Palacios esophagus, Chronic hypoxemic respiratory failure, GERD, Pulmonary fibrosis ( continuous O2 3-4L), Cervical spinal stenosis, Lumbar spinal stenosis w/ radiculopathy, hx of TIA, and constipation secondary to opioid therapy. Admitted for AMS, SOB and increased weakness.
--- NOTE | 2018-08-24 11:36 | PN ---
Progress Note (short form) - Note Progress Note: PULMONARY Breathing improved. States close to baseline. +cough but unable to tell me what is being produced. No fevers or chills. Vital Signs Period Temp Pulse Resp BP Sys/Gipson Pulse Ox Last 24 Hr 97.4 F-98.9 F 72-89 18-25 115-154/60-106 92-96 Gen: NAD at rest Heart: RRR Lung: bibasilar rales Abd: soft, nontender Ext: no edema CBC, BMP 08/24/18 06:00 08/24/18 06:00 Active Medications Acetaminophen (Tylenol -) 650 mg PO Q6H PRN PRN Reason: pain Albuterol/Ipratropium (Duoneb -) 1 amp NEB RQID [facility] Last Admin: 08/24/18 07:55 Dose: 1 amp Alprazolam (Xanax -) 1 mg PO TID [facility] Last Admin: 08/24/18 06:07 Dose: 1 mg Artificial Tears (Artificial Tears) 1 drop OU BID PRN PRN Reason: DRY EYES Aspirin (Ecotrin -) 81 mg PO [facility] Last Admin: 08/23/18 21:49 Dose: 81 mg Atorvastatin Calcium (Lipitor -) 80 mg PO [facility] Last Admin: 08/23/18 21:50 Dose: 80 mg Baclofen (Lioresal -) 10 mg PO BID [facility] Last Admin: 08/24/18 09:57 Dose: 10 mg Cholecalciferol (Vitamin D3 -) 5,000 unit PO DAILY [facility] Last Admin: 08/24/18 09:54 Dose: 5,000 unit Docusate Sodium (Colace -) 100 mg PO BID [facility] Last Admin: 08/24/18 09:54 Dose: 100 mg Fentanyl (Duragesic 50mcg Patch -) 1 patch TD Q72H [facility] Last Admin: 08/23/18 15:23 Dose: 1 patch Fluticasone Propionate (Flonase -) 1 spray NS Q12H PRN PRN Reason: NASAL CONGESTION Furosemide (Lasix -) 20 mg PO DAILY [facility] Last Admin: 08/24/18 10:00 Dose: 20 mg Gabapentin (Neurontin -) 300 mg PO [facility] Last Admin: 08/23/18 21:47 Dose: 300 mg Guaifenesin (Robitussin -) 15 ml PO Q4H PRN PRN Reason: COUGH/CHEST CONGESTION Last Admin: 08/24/18 10:00 Dose: 15 ml Azithromycin (Zithromax 500mg Ivpb (Pre-Docked)) 500 mg in 250 mls @ 250 mls/ hr IVPB DAILY [facility] Last Admin: 08/24/18 09:55 Dose: 250 mls/hr Methylprednisolone Sodium Succinate (Solu-Medrol -) 60 mg IVPUSH Q8H-IV [facility] Last Admin: 08/24/18 09:55 Dose: 60 mg Metoprolol Succinate (Toprol Xl -) 25 mg PO DAILY [facility] Last Admin: 08/24/18 09:55 Dose: 25 mg Mirtazapine (Remeron -) 7.5 mg PO HS [facility] Last Admin: 08/23/18 21:49 Dose: 7.5 mg Miscellaneous (Lidoderm Patch Removal) 1 each MC DAILY@2200 [facility] Last Admin: 08/23/18 22:06 Dose: 1 each Miscellaneous (Duragesic Patch Waste) 1 each TD PRN PRN PRN Reason: WASTE Last Admin: 08/23/18 15:20 Dose: 1 each Pantoprazole Sodium (Protonix -) 40 mg PO DAILY [facility] Last Admin: 08/24/18 09:57 Dose: 40 mg Senna (Senna -) 1 tab PO BID [facility] Last Admin: 08/24/18 09:54 Dose: 1 tab Sodium Chloride ([place] Nasal [place] -) 1 spray NS BID PRN PRN Reason: NASAL CONGESTION A/P Acute on Chronic Hypoxic Respiratory Failure Chronic Hypercapneic Respiratory Failure Advanced Interstitial Lung Disease r/o Pneumonia CAD HTN Hyperlipidemia - will decrease medrol to 40mg q12h - if continues to improve, can likely change steroids to PO prednisone 40mg daily and taper as outpt - O2 to keep SpO2 >90% - inhaled bronchodilators - continue empiric antibiotics - f/u cultures - DVT prophylaxis
[2018-08-24] MEDS: ATORVASTATIN CA 80 MG TABLET (FP) PO SCH (21:22)
[2018-08-24] MEDS: GABAPENTIN 300 MG CAPSULE (FP) PO SCH (21:23)
[2018-08-24] MEDS: ASPIRIN COATED 81 MG TABLET.EC PO SCH (21:23)
[2018-08-24] MEDS: MIRTAZAPINE 15 MG TABLET (FP) PO SCH (21:24)
[2018-08-24] MEDS: ACETAMINOPHEN 325 MG TABLET (FP) PO PRN (21:25)
[2018-08-24] MEDS: LIDOCAINE PATCH REMOVAL MC SCH (22:17)
[2018-08-25] MEDS: ALPRAZolam 2 MG TABLET PO SCH (05:56)
[2018-08-25] MEDS: ACETAMINOPHEN 325 MG TABLET (FP) PO PRN (05:58)
[2018-08-25] MEDS: ALBUTEROL SO4 2.5/IPRATROPIUM 0.5 INH SOL 3 ML VIAL.NEB. NEB SCH ×2 (07:10→11:47)
[2018-08-25 08:15] LABS: BASO % 0.1 % (0-2.0); EOS % 0.1 % (0-4.5); HEMATOCRIT 40.1 % (35.4-49); HEMOGLOBIN 12.5 GM/dL (11.7-16.9); LYMPH % 9.8 % (8-40); MCH 30.6 pg (25.7-33.7); MCHC 31.2 g/dl (32.0-35.9); MEAN CELL VOLUME 98.2 fl (80-96); MEAN PLT VOLUME 8.6 fl (7.5-11.1); MONO % 7.1 % (3.8-10.2); NEUT % 82.9 % (42.8-82.8); PLATELET COUNT 253 K/MM3 (134-434); RBC 4.09 M/mm3 (4.00-5.60); RDW 13.8 % (11.9-15.9)
[2018-08-25 08:28] LABS: ALBUMIN 3.1 g/dl (3.4-5.0); ALK PHOS 84 U/L (45-117); ANION GAP 4 MMOL/L (8-16); BILIRUBIN,TOTAL 0.3 mg/dL (0.2-1); BLOOD UREA NITROGEN 19 mg/dL (7-18); CALCIUM 9.4 mg/dL (8.5-10.1); CHLORIDE 96 mmol/L (98-107); CO2 40 mmol/L (21-32); CREATININE 0.9 mg/dL (0.55-1.3); GLUCOSE,RANDOM 110 mg/dL (74-106); POTASSIUM 5.8 mmol/L (3.5-5.1); SGOT/AST 16 U/L (15-37); SGPT/ALT 19 U/L (13-61); SODIUM 140 mmol/L (136-145); TOT PROT 7.1 g/dl (6.4-8.2)
--- NOTE | 2018-08-25 09:59 | DS ---
Physical Examination Vital Signs: Vital Signs Temperature 98.4 F 08/25/18 06:00 Pulse Rate 98 H 08/25/18 06:00 Respiratory Rate 20 08/25/18 06:00 Blood Pressure 116/75 08/25/18 06:00 O2 Sat by Pulse Oximetry (%) 94 L 08/24/18 21:00 Constitutional: Yes: Well Nourished, No Distress, Calm Eyes: Yes: Conjunctiva Clear HENT: Yes: Atraumatic, Normocephalic Neck: Yes: Supple, Trachea Midline Cardiovascular: Yes: Regular Rate and Rhythm Respiratory: Yes: Regular, CTA Bilaterally Gastrointestinal: Yes: Normal Bowel Sounds, Soft ...Rectal Exam: Yes: Deferred Renal/: Yes: WNL Breast(s): Yes: WNL Musculoskeletal: Yes: WNL Extremities: Yes: WNL Edema: No Peripheral Pulses WNL: Yes Integumentary: Yes: WNL Neurological: Yes: Alert, Oriented ...Motor Strength: WNL Psychiatric: Yes: Alert Labs: CBC, BMP 08/25/18 07:00 08/25/18 07:00 Discharge Summary Reason For Visit: FIBROSIS OF LUNG/WEAKNESS Current Active Problems Acute on chronic respiratory failure with hypoxemia (Acute) Pulmonary fibrosis (Acute) Shortness of breath (Acute) Hospital Course: Mr. Diaz is a 77 year old male with past medical history of Squamous cell CA, R. hip replacement with arthritis, cataracts, PCI (2012), HTN, HLD, [place] esophagus, Chronic hypoxemic respiratory failure, GERD, Pulmonary fibrosis ( continuous O2 3-4L), Cervical spinal stenosis, Lumbar spinal stenosis w/ radiculopathy, hx of TIA, and constipation secondary to opioid therapy. Admitted for AMS, SOB and increased weakness. AMS resolved. + cough, however, improved. Condition: Fair - Instructions Diet, Activity, Other Instructions: Plan to return to [facility] today. Disposition: HOME - Home Medications Comprehensive Discharge Medication List: Ambulatory Orders Alprazolam [Xanax] 1 mg PO TID 11/21/17 Aspirin [Aspirin EC] 81 mg PO HS 11/21/17 Atorvastatin Ca [Lipitor] 80 mg PO HS 11/21/17 Baclofen 10 mg PO BID 11/21/17 Cholecalciferol (Vitamin D3) [Vitamin D3] 5,000 unit PO DAILY 11/21/17 Esomeprazole Magnesium [Nexium 24Hr] 40 mg PO DAILY PRN 11/21/17 FENTANYL 25mcg PATCH [DURAGESIC 25mcg PATCH -] 50 mcg TD Q72H 11/21/17 Fluticasone Prop 0.05% Nasal [Flonase -] 1 spray NS BID PRN 11/21/17 Furosemide [Lasix -] 20 mg PO DAILY 11/21/17 Gabapentin [Neurontin] 300 mg PO HS 11/21/17 Hypromellose 0.5% Opth Soln [Artificial Tears] 1 drop OU BID PRN 11/21/17 Metoprolol Succinate [Toprol Xl -] 25 mg PO DAILY 11/21/17 Mirtazapine 7.5 mg PO HS 11/21/17 Morphine *Sr* [Ms Contin -] 15 mg PO Q6H PRN 11/21/17 Naproxen [EC-Naprosyn 375 MG] 375 mg PO BID PRN 11/21/17 Sennosides [Senna] 1 tab PO BID 11/21/17 Sodium Chloride [[place] Saline] 1 spr NS BID PRN 11/21/17 Albuterol 0.083% Nebulizer Chanell [Ventolin 0.083%] 1 neb NEB QID 08/23/18 Azithromycin 250 mg PO DAILY 08/23/18 Docusate Sodium [Colace] 100 mg PO BID 08/23/18 Pantoprazole Sodium [Protonix] 40 mg PO DAILY 08/23/18 Prednisone [Deltasone] 20 mg PO DAILY 08/23/18
[2018-08-25] MEDS: AZITHROMYCIN IVPB 500 MG/250 ML BAG IVPB SCH (10:47)
[2018-08-25] MEDS: methylPREDNISolone NA SUCC 40 MG/1 ML VIAL IVPUSH SCH (10:48)
[2018-08-25] MEDS: metoPROLOL SUCCINATE 25 MG TAB.SR.24H (FP) PO SCH (10:49)
[2018-08-25] MEDS: CHOLECALCIFEROL (VITAMIN D3) 1,000 UNIT TABLET (FP) PO SCH (10:49)
[2018-08-25] MEDS: DOCUSATE SODIUM 100 MG CAPSULE (FP) PO SCH (10:50)
[2018-08-25] MEDS: PANTOPRAZOLE 40 MG TABLET (FP) PO SCH (10:50)
[2018-08-25] MEDS: SENNOSIDES 8.6MG TABLET (FP) PO SCH (10:50)
[2018-08-25] MEDS: FUROSEMIDE 20 MG TABLET (FP) PO SCH (10:50)
[2018-08-25] MEDS: BACLOFEN 10 MG TABLET (FP) PO SCH (10:50)
[2018-08-25] MEDS ORDERED: LIDOCAINE 5% TOPICAL PATCH TP SCH (11:00)
[2018-08-25] MEDS ORDERED: fentaNYL 50mcg/hr PATCH.TD72 TD SCH (13:00)
[2018-08-25 13:28] VITALS: BP 142/65; PULSE 84; TEMP 98.2
[2018-08-25] MEDS ORDERED: LIDOCAINE PATCH REMOVAL MC SCH (22:00)
== END 2018-08-25 13:36 | disposition home or self-care (01) | DRG 196 ==
LOC: JER 09:58 → JERBED 12:24 → J6S 14:02
PROVIDERS: ADMIT Family Medicine; ATTEND Family Medicine
DX: J84.9 Interstitial pulmonary disease, unspecified (principal); J96.21 Acute and chronic respiratory failure with hypoxia; J96.12 Chronic respiratory failure with hypercapnia; E11.9 Type 2 diabetes mellitus without complications; I10 Essential (primary) hypertension; E78.5 Hyperlipidemia, unspecified; K21.9 Gastro-esophageal reflux disease without esophagitis; J84.10 Pulmonary fibrosis, unspecified; M48.061 Spinal stenosis, lumbar region without neurogenic claudication; M48.02 Spinal stenosis, cervical region; Z86.73 Personal history of transient ischemic attack (TIA), and cerebral infarction without residual deficits; Z96.641 Presence of right artificial hip joint; Z87.891 Personal history of nicotine dependence; Z66 Do not resuscitate; Z85.828 Personal history of other malignant neoplasm of skin; Z95.5 Presence of coronary angioplasty implant and graft; I25.10 Atherosclerotic heart disease of native coronary artery without angina pectoris; K22.70 Barrett's esophagus without dysplasia; G62.9 Polyneuropathy, unspecified; E66.9 Obesity, unspecified; Z68.39 Body mass index [BMI] 39.0-39.9, adult; K59.03 Drug induced constipation; T40.2X5A Adverse effect of other opioids, initial encounter
CPT/HCPCS: 36415; 71045-TC-FY; 80048; 80053; 80307; 82803; 83605; 84484; 85025; 85027; 85610; 87040; 87804; 93005; 93010; 94640; 97116-GP; 97161-GP; 99284-25; J0131; J0475